=== PATIENT | female | born 1965 | race Hispanic/Latino ===

== ENCOUNTER 2017-08-21 09:17 | Emergency (ER) | payer SELFPAY ==
[2017-08-21] MEDS ORDERED: HYDROCODONE/APAP 10/325 TAB ONE (09:43)
--- NOTE | 2017-08-21 10:33 | RAD REPORT ---
EXAM DESCRIPTION: RAD - Knee Right 3 View - 08/21/2017 10:00 am CLINICAL HISTORY: Right knee pain x1 day COMPARISON: None. FINDINGS: Mild medial compartment space narrowing. No fracture, dislocation or aggressive marrow les ion. No significant intra-articular joint fluid seen.
--- NOTE | 2017-08-21 10:39 | ER ---
Nurse's Notes [facility] Name: Cleo Farris Age: 52 yrs Sex: Female : 1965 Arrival Date: 08/21/2017 Time: 09:21 Bed 20 Private MD: Out, [facility] Diagnosis: Pain in right knee Presentation: 08/21 09:25 Presenting complaint: Patient states: right knee pain, unable to walk on it x 1 day. sv Transition of care: patient was not received from another setting of care. Onset of symptoms was August 20, 2017. 09:25 Method Of Arrival: Wheelchair sv 09:25 Acuity: KYRA 4 sv 09:26 Risk Assessment: Do you want to hurt yourself or someone else? Patient reports no sv desire to harm self or others. Care prior to arrival: None. 09:45 Initial Sepsis Screen: Does the patient meet any 2 criteria? Does the patient have a sg suspected source of infection? No. Patient's initial sepsis screen is negative. Triage Assessment: 09:45 General: Appears in no apparent distress. comfortable, well groomed, well developed, sg well nourished, Behavior is calm, cooperative, appropriate for age. Injury Description: denies injury. 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 - Social history:: Smoking status: Patient/guardian denies using tobacco, Patient/guardian denies using alcohol. - Ebola Screening: : No symptoms or risks identified at this time. Screenin:45 Abuse screen: Denies threats or abuse. Denies injuries from another. Nutritional sg screening: No deficits noted. Tuberculosis screening: No symptoms or risk factors identified. Never had TB. Fall Risk None identified. Assessment: 09:45 General: Appears in no apparent distress. comfortable, well groomed, well developed, sg well nourished, Behavior is calm, cooperative, appropriate for age. Pain: Complains of pain in left arm and right knee Pain does not radiate. Quality of pain is described as aching. Neuro: No deficits noted. Cardiovascular: Heart tones S1 S2 present Capillary refill is brisk in bilateral fingers Patient's skin is warm and dry. Chest pain is denied. Cardiovascular: Denies chest pain, diaphoresis, fatigue, lightheadedness, nausea, palpitations, shortness of breath, syncope, vomiting. Respiratory: Airway is patent Respiratory effort is even, unlabored, Respiratory pattern is regular, symmetrical, Breath sounds are clear. GI: No signs and/or symptoms were reported involving the gastrointestinal system. : No signs and/or symptoms were reported regarding the genitourinary system. EENT: No deficits noted. Derm: Skin is pink, warm \T\ dry. Musculoskeletal: Circulation, motion, and sensation intact. Range of motion: intact in all extremities, Swelling absent Reports pain in left arm and right knee. 09:45 Reassessment: a black knee brace is noted to the Right Knee, pt reports applying the sg brace at home MANAGER ORDER. 09:53 Reassessment: xray at bedside. sg Vital Signs: 09:27 BP 138 / 86; Pulse 82; Resp 22; Pulse Ox 98% ; Weight 104.33 kg; Height 5 ft. 0 in. sv (152.40 cm); Pain 9/10; 10:30 BP 132 / 82; Pulse 82; Resp 18 S; Pulse Ox 98% on R/A; Pain 6/10; sg 09:27 Body Mass Index 44.92 (104.33 kg, 152.40 cm) sv ED Course: 09:21 Patient arrived in ED. sb2 09:21 Out, [facility] is Private Physician. sb2 09:26 Triage completed. sv 09:27 Arm band placed on right wrist. sv 09:29 Irving Flannery NP is PHCP. pm1 09:29 Cipriano Ghotra MD is Attending Physician. pm1 09:39 Osmar Vasquez, SARAH is Primary Nurse. sg 09:45 Patient has correct armband on for positive identification. Bed in low position. Call sg light in reach. pt requesting to stay seated in the wheelchair for comfort. 09:45 No provider procedures requiring assistance completed. Patient did not have IV access sg during this emergency room visit. 09:57 X-ray completed. Portable x-ray completed in exam room. Patient tolerated procedure jb2 well. 09:58 Knee Right 3 View XRAY In Process Unspecified. EDMS 10:38 Sumit Gordillo MD is Referral Physician. pm1 10:50 Crutch training done. Dez wrap to right knee pt to continue wearing personal knee brace.sg Administered Medications: 09:43 Drug: [place] 10 mg-325 mg 1 tabs Route: PO; sg 10:54 Follow up: Response: No adverse reaction; Pain is decreased ss Outcome: 10:39 Discharge ordered by . pm1 10:53 Patient left the ED. sg 10:53 Discharged to home ambulatory, with family. ss 10:53 Condition: good 10:53 Discharge instructions given to patient, family, Instructed on discharge instructions, follow up and referral plans. medication usage, Demonstrated understanding of instructions, follow-up care, medications, Prescriptions given X 1. Signatures: Dispatcher [employer] EDVT Gladys Gutiérrez RN RN Osmar Vasquez RN RN Luis Cortes jb2 Nadia Huffman RN RN Irving Flannery, GINO FUNDRAISING CONSULTANT pm1 Marylou Newell2
--- NOTE | 2017-08-21 10:39 | EDPHYS ---
Physician Documentation [facility] Name: Cleo Farris Age: 52 yrs Sex: Female : 1965 Arrival Date: 08/21/2017 Time: 09:21 Bed 20 Private MD: Out, [facility] ED Physician Cipriano Ghotra HPI: 08/21 10:23 This 52 yrs old Female presents to ER via Wheelchair with complaints of Right pm1 Knee Pain. 10:23 The patient presents with pain. The complaints affect the right knee. Context: resulted pm1 from History of arthritis, Currently using knee brace, Problem is a result from a previous injury: No. Onset: The symptoms/episode began/occurred 1 week(s) ago. Modifying factors: The symptoms are alleviated by OTC meds, ibuprofen and tylenol. the symptoms are aggravated by weight bearing, bending knee. Associated signs and symptoms: Pertinent negatives calf tenderness, fever, numbness, swelling, tingling. Treatment prior to arrival includes: lynda wrap, over the counter medications, NSAIDS, Tylenol, soft knee brace. Severity of symptoms: in the emergency department the symptoms are actually worse. The patient has been recently seen by a physician: the patient's primary care provider, with similar presenting complaints, was given a prescription for pain medications, but the patient's symptoms have worsened. 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 - Social history:: Smoking status: Patient/guardian denies using tobacco, Patient/guardian denies using alcohol. - Ebola Screening: : No symptoms or risks identified at this time. ROS: 10:23 Constitutional: Negative for fever, chills, and weight loss, Cardiovascular: Negative pm1 for chest pain, palpitations, and edema, Respiratory: Negative for shortness of breath, cough, wheezing, and pleuritic chest pain, Abdomen/GI: Negative for abdominal pain, nausea, vomiting, diarrhea, and constipation, Back: Negative for injury and pain. 10:23 Skin: Negative for injury, rash, and discoloration, Neuro: Negative for headache, weakness, numbness, tingling, and seizure. 10:23 MS/extremity: Positive for pain, of the right knee, Negative for decreased range of motion, deformity. Exam: 10:23 Constitutional: This is a well developed, well nourished patient who is awake, alert, pm1 and in no acute distress. Head/Face: Normocephalic, atraumatic. Chest/axilla: Normal chest wall appearance and motion. Nontender with no deformity. No lesions are appreciated. Cardiovascular: Regular rate and rhythm with a normal S1 and S2. No gallops, murmurs, or rubs. Normal PMI, no JVD. No pulse deficits. Respiratory: Lungs have equal breath sounds bilaterally, clear to auscultation and percussion. No rales, rhonchi or wheezes noted. No increased work of breathing, no retractions or nasal flaring. Back: No spinal tenderness. No costovertebral tenderness. Full range of motion. Skin: Warm, dry with normal turgor. Normal color with no rashes, no lesions, and no evidence of cellulitis. 10:23 Musculoskeletal/extremity: Extremities: grossly normal except: noted in the right knee: tenderness, Sensation intact. DVT Exam: No signs of deep vein thrombosis. 10:23 Neuro: Orientation: is normal, Motor: is normal, moves all fours. Vital Signs: 09:27 BP 138 / 86; Pulse 82; Resp 22; Pulse Ox 98% ; Weight 104.33 kg; Height 5 ft. 0 in. sv (152.40 cm); Pain 9/10; 10:30 BP 132 / 82; Pulse 82; Resp 18 S; Pulse Ox 98% on R/A; Pain 6/10; sg 09:27 Body Mass Index 44.92 (104.33 kg, 152.40 cm) sv MDM: 09:32 Patient medically screened. pm1 10:33 Data reviewed: vital signs. Data interpreted: Pulse oximetry: on room air is 98 %. pm1 Interpretation: normal. Counseling: I had a detailed discussion with the patient and/or guardian regarding: the historical points, exam findings, and any diagnostic results supporting the discharge/admit diagnosis, radiology results, the need for outpatient follow up, for definitive care, a orthopedic surgeon, to return to the emergency department if symptoms worsen or persist or if there are any questions or concerns that arise at home. 08/21 09:38 Order name: Knee Right 3 View XRAY; Complete Time: 10:42 pm1 Administered Medications: 09:43 Drug: [place] 10 mg-325 mg 1 tabs Route: PO; sg 10:54 Follow up: Response: No adverse reaction; Pain is decreased ss Disposition: 08/21/17 10:39 Discharged to Home. Impression: Pain in right knee. - Condition is Stable. - Discharge Instructions: Arthralgia, Crutch Use, Knee Pain. - Prescriptions for Tylenol- Codeine #3 300-30 mg Oral Tablet - take 2 tablets by ORAL route every 6 hours As needed; 20 tablet. - Medication Reconciliation Form, Thank You Letter, Prescription Opioid Use form. - Follow up: Emergency Department; When: As needed; Reason: Worsening of condition. Follow up: Sumit Gordillo MD; When: 2 - 3 days; Reason: Recheck today's complaints, Continuance of care, Re-evaluation by your physician. - Problem is new. - Symptoms have improved. Addendum: 08/22/2017 15:24 Co-signature as Attending Physician, Cipriano Ghotra MD I agree with the assessment and c barnes plan of care. Signatures: Dispatcher [employer] EDGladys Sarmiento RN RN Osmar Vasquez RN RN sg Anderson, Corey, MD MD cha Marinas, Patrick, ENGINEERING TEST SPECIALIST ENGINEERING TEST SPECIALIST pm1 Nadia Huffman RN Corrections: (The following items were deleted from the chart) 08/21 10:53 10:39 08/21/2017 10:39 Discharged to Home. Impression: Pain in right knee. Condition is sg Stable. Forms are Medication Reconciliation Form, Thank You Letter, Antibiotic Education, Prescription Opioid Use. Follow up: Emergency Department; When: As needed; Reason: Worsening of condition. Follow up: Dr. Sumit Gordillo; When: 2 - 3 days; Reason: Recheck today's complaints, Continuance of care, Re-evaluation by your physician. Problem is new. Symptoms have improved. pm1
== END 2017-08-21 10:53 | disposition home or self-care (01) ==
LOC: ER 09:17
DX: M25.561 Pain in right knee (principal); E11.9 Type 2 diabetes mellitus without complications; E78.00 Pure hypercholesterolemia, unspecified
CPT/HCPCS: 99284

== ENCOUNTER 2018-01-09 20:05 | Emergency (ER) | payer SELFPAY ==
[2018-01-09] MEDS ORDERED: IBUPROFEN 400 MG TAB ONE (23:20)
[2018-01-09] MEDS ORDERED: IBUPROFEN 200 MG TAB PO ONE (23:20)
[2018-01-09] MEDS ORDERED: ACETAMINOPHEN 500 MG TAB ONE (23:20)
--- NOTE | 2018-01-10 01:26 | EDPHYS ---
Physician Documentation [facility] Name: Cleo Farris Age: 52 yrs Sex: Female : 1965 Arrival Date: 01/09/2018 Time: 20:07 Bed 19 Private MD: ED Physician Johann Hdz HPI: 01/10 06:33 This 52 yrs old Female presents to ER via EMS with complaints of Fall Injury. 06:33 Details of fall: The patient fell from an upright position. Onset: The symptoms/episode wa began/occurred just prior to arrival. Associated injuries: The patient sustained painful injury, L hip, R knee. Severity of symptoms: At their worst the symptoms were moderate, in the emergency department the symptoms are unchanged. The patient has not experienced similar symptoms in the past. The patient has not recently seen a physician. 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 - Social history:: Smoking status: Patient/guardian denies using tobacco. - Ebola Screening: : No symptoms or risks identified at this time. - Family history:: not pertinent. - Hospitalizations: : No recent hospitalization is reported. ROS: 01/10 06:43 Constitutional: Negative for fever, chills, and weight loss, Eyes: Negative for injury, wa pain, redness, and discharge, ENT: Negative for injury, pain, and discharge, Neck: Negative for injury, pain, and swelling, Cardiovascular: Negative for chest pain, palpitations, and edema, Respiratory: Negative for shortness of breath, cough, wheezing, and pleuritic chest pain, Abdomen/GI: Negative for abdominal pain, nausea, vomiting, diarrhea, and constipation, Back: Negative for injury and pain, : Negative for injury, bleeding, discharge, and swelling, Skin: Negative for injury, rash, and discoloration, Neuro: Negative for headache, weakness, numbness, tingling, and seizure, Psych: Negative for depression, anxiety, suicide ideation, homicidal ideation, and hallucinations. MS/extremity: Positive for pain, tenderness, of the left hip and right knee. Exam: 06:48 Constitutional: This is a well developed, well nourished patient who is awake, alert, wa and in no acute distress. Head/Face: Normocephalic, atraumatic. Eyes: Pupils equal round and reactive to light, extra-ocular motions intact. Lids and lashes normal. Conjunctiva and sclera are non-icteric and not injected. Cornea within normal limits. Periorbital areas with no swelling, redness, or edema. ENT: Nares patent. No nasal discharge, no septal abnormalities noted. Tympanic membranes are normal and external auditory canals are clear. Oropharynx with no redness, swelling, or masses, exudates, or evidence of obstruction, uvula midline. Mucous membranes moist. Neck: Trachea midline, no thyromegaly or masses palpated, and no cervical lymphadenopathy. Supple, full range of motion without nuchal rigidity, or vertebral point tenderness. No Meningismus. Chest/axilla: Normal chest wall appearance and motion. Nontender with no deformity. No lesions are appreciated. Cardiovascular: Regular rate and rhythm with a normal S1 and S2. No gallops, murmurs, or rubs. Normal PMI, no JVD. No pulse deficits. Respiratory: Lungs have equal breath sounds bilaterally, clear to auscultation and percussion. No rales, rhonchi or wheezes noted. No increased work of breathing, no retractions or nasal flaring. Abdomen/GI: Soft, non-tender, with normal bowel sounds. No distension or tympany. No guarding or rebound. No evidence of tenderness throughout. Back: No spinal tenderness. No costovertebral tenderness. Full range of motion. Skin: Warm, dry with normal turgor. Normal color with no rashes, no lesions, and no evidence of cellulitis. Neuro: Awake and alert, GCS 15, oriented to person, place, time, and situation. Cranial nerves II-XII grossly intact. Motor strength 5/5 in all extremities. Sensory grossly intact. Cerebellar exam normal. Normal gait. Psych: Awake, alert, with orientation to person, place and time. Behavior, mood, and affect are within normal limits. 06:48 Musculoskeletal/extremity: Extremities: noted in the left hip and right leg: pain, tenderness. Vital Signs: 01/09 21:13 BP 123 / 87; Pulse 80; Resp 17; Temp 98.1; Pulse Ox 96% on R/A; Weight 90.72 kg; Height kr2 5 ft. (152.40 cm); Pain 8/10; 22:05 BP 131 / 79; Pulse 81; Resp 17 S; Pulse Ox 97% on R/A; jd3 23:36 Pulse 71; Resp 18 S; Pulse Ox 97% on R/A; jd3 01/10 01:34 BP 129 / 85; Pulse 83; Resp 16 S; Pulse Ox 97% on R/A; d3 01/09 21:13 Body Mass Index 39.06 (90.72 kg, 152.40 cm) kr2 [place] Coma Score: 01/09 21:13 Eye Response: spontaneous(4). Verbal Response: oriented(5). Motor Response: obeys kr2 commands(6). Total: 15. Trauma Score (Adult): 21:13 Eye Response: spontaneous(1); Verbal Response: oriented(1); Motor Response: obeys kr2 commands(2); Systolic BP: > 89 mm Hg(4); Respiratory Rate: 10 to 29 per min(4); [place] Score: 15; Trauma Score: 12 MDM: 22:10 Patient medically screened. ga 01/10 06:48 Differential diagnosis: contusion, fracture, sprain, strain. Data reviewed: vital wa signs, nurses notes, radiologic studies. Test interpretation: by ED physician or midlevel provider: no acute fx. Response to treatment: the patient's symptoms have markedly improved after treatment. 01/09 23:08 Order name: Knee Right 3 View XRAY ga 01/09 23:08 Order name: Hip Left 2 View XRAY ga Administered Medications: 01/09 23:20 Drug: Motrin 600 mg Route: PO; [facility] 01/10 00:20 Follow up: Response: No adverse reaction [facility] 01/09 23:20 Drug: Tylenol 1000 mg Route: PO; d3 01/10 00:20 Follow up: Response: No adverse reaction j Disposition: 01/10/18 01:25 Discharged to Home. Impression: Right Hip sprain, Right Knee sprain. - Condition is Stable. - Discharge Instructions: Hip Pain, Knee Sprain, [id number]. - Prescriptions for Ibuprofen 600 mg Oral Tablet - take 1 tablet by ORAL route every 8 hours As needed take with food; 30 tablet. - Medication Reconciliation Form, Thank You Letter, Antibiotic Education, Prescription Opioid Use, Work release form form. - Follow up: Private Physician; When: 5 - 6 days; Reason: Recheck today's complaints. - Problem is new. - Symptoms have improved. - Notes: take ibuprofen and tylenol for pain as needed. Signatures: Dispatcher [employer] EDMS Johann Hdz MD MD wa Davies, Jonathon RN RN jd3 Ines Zuniga RN RN kr2 Corrections: (The following items were deleted from the chart) 01:35 01:25 01/10/2018 01:25 Discharged to Home. Impression: Right Hip sprain; Right Knee jd3 sprain. Condition is Stable. Forms are Medication Reconciliation Form, Thank You Letter, Antibiotic Education, Prescription Opioid Use. Follow up: Private Physician; When: 5 - 6 days; Reason: Recheck today's complaints. Problem is new. Symptoms have improved. liliana
--- NOTE | 2018-01-10 01:26 | ER ---
Nurse's Notes [facility] Name: Cleo Farris Age: 52 yrs Sex: Female : 1965 Arrival Date: 01/09/2018 Time: 20:07 Bed 19 Private MD: Diagnosis: Right Hip sprain;Right Knee sprain Presentation: 01/09 21:09 Presenting complaint: EMS states: Patient was in the store and slipped and fell, is kr2 complained of left hip pain, right knee pain and right hand pain. Care prior to arrival: None. Mechanism of Injury: Fall from standing position. Trauma event details: Injury occurred in the [facility], Injury occurred: in a public building. Injury occurred: January 09, 2018. 21:09 Acuity: KYRA 4 kr2 21:09 Method Of Arrival: EMS: [facility] kr2 22:04 Transition of care: patient was not received from another setting of care. Onset of jd3 symptoms was January 09, 2018. Risk Assessment: Do you want to hurt yourself or someone else? Patient reports no desire to harm self or others. Initial Sepsis Screen: Does the patient meet any 2 criteria? No. Patient's initial sepsis screen is negative. Does the patient have a suspected source of infection? No. Patient's initial sepsis screen is negative. 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: 01/10 01:35 LMP N/A - Irregular menses jd3 Trauma Activation: Not Applicable Physician: ED Physician; Name: ; Notified At: ; Arrived At: Physician: General Surgeon; Name: ; Notified At: ; Arrived At: Physician: Radiology; Name: ; Notified At: ; Arrived At: Physician: Respiratory; Name: ; Notified At: ; Arrived At: Physician: Lab; Name: ; Notified At: ; Arrived At: Historical: - Allergies: 01/09 21:14 No Known Allergies; kr2 - Home Meds: 21:14 Glipizide Oral [Active]; Metformin Oral [Active]; Lisinopril Oral [Active]; kr2 - PMHx: 21:14 Diabetes - NIDDM; Heart Murmur; High Cholesterol; kr2 - PSHx: 21:14 Cholecystectomy; ; kr2 - Immunization history: Last tetanus immunization: - up to date. - Social history:: Smoking status: Patient/guardian denies using tobacco. - Ebola Screening: : No symptoms or risks identified at this time. - Family history:: not pertinent. - Hospitalizations: : No recent hospitalization is reported. Screenin:04 Abuse screen: Denies threats or abuse. Nutritional screening: No deficits noted. jd3 Tuberculosis screening: No symptoms or risk factors identified. Fall Risk Fall in past 12 months (25 points). Ambulatory Aid- None/Bed Rest/Nurse Assist (0 pts). Gait- Weak (10 pts.). Mental Status- Oriented to own ability (0 pts). Total Kong Fall Scale indicates Low Risk Score (25-44 pts). Fall prevention measures have been instituted. Side Rails Up X 2 Placed close to Nursing Station Frequent Obs/Assesments occuring Family Present and informed to notify staff if they need to leave bedside. Primary Survey: 21:12 A: Airway: patent. Breathing/Chest: Respiratory pattern: regular, Respiratory effort: kr2 spontaneous, unlabored. Circulation: Heart tones present. Disability Alert. Assessment: 21:11 General: Appears in no apparent distress. Behavior is calm, cooperative. Pain: kr2 Complains of pain in right hand, right knee, left hip Pain does not radiate. Pain currently is 8 out of 10 on a pain scale. Quality of pain is described as burning, aching, tender, Is continuous, Alleviated by rest, Aggravated by weight bearing. Neuro: Level of Consciousness is awake, alert, obeys commands, Oriented to person, place, time, situation, Appropriate for age. 22:03 General: Appears in no apparent distress. Behavior is calm, cooperative, appropriate jd3 for age. Pain: Complains of pain in left hip, right hand and right knee. Neuro: Level of Consciousness is awake, alert, obeys commands, Oriented to person, place, time, situation, Appropriate for age. Cardiovascular: Capillary refill < 3 seconds Patient's skin is warm and dry. Respiratory: Airway is patent Respiratory effort is even, unlabored, Respiratory pattern is regular, symmetrical. GI: No signs and/or symptoms were reported involving the gastrointestinal system. : No signs and/or symptoms were reported regarding the genitourinary system. EENT: No signs and/or symptoms were reported regarding the EENT system. Derm: Skin is intact, Skin is dry, Skin is normal, Skin temperature is warm. Musculoskeletal: Circulation, motion, and sensation intact. Range of motion: limited in right knee. 23:37 Reassessment: Patient appears in no apparent distress at this time. No changes from jd3 previously documented assessment. Patient and/or family updated on plan of care and expected duration. Pain level reassessed. Patient is alert, oriented x 3, equal unlabored respirations, skin warm/dry/pink. 01/10 00:27 Reassessment: Patient appears in no apparent distress at this time. Patient and/or jd3 family updated on plan of care and expected duration. Pain level reassessed. Patient is alert, oriented x 3, equal unlabored respirations, skin warm/dry/pink. 01:33 Reassessment: Patient appears in no apparent distress at this time. No changes from jd3 previously documented assessment. Patient and/or family updated on plan of care and expected duration. Pain level reassessed. Patient is alert, oriented x 3, equal unlabored respirations, skin warm/dry/pink. reported understanding of discharge instructions. Vital Signs: 01/09 21:13 BP 123 / 87; Pulse 80; Resp 17; Temp 98.1; Pulse Ox 96% on R/A; Weight 90.72 kg; Height kr2 5 ft. (152.40 cm); Pain 8/10; 22:05 BP 131 / 79; Pulse 81; Resp 17 S; Pulse Ox 97% on R/A; jd3 23:36 Pulse 71; Resp 18 S; Pulse Ox 97% on R/A; jd3 01/10 01:34 BP 129 / 85; Pulse 83; Resp 16 S; Pulse Ox 97% on R/A; d3 01/09 21:13 Body Mass Index 39.06 (90.72 kg, 152.40 cm) kr2 Lesli Coma Score: 01/09 21:13 Eye Response: spontaneous(4). Verbal Response: oriented(5). Motor Response: obeys kr2 commands(6). Total: 15. Trauma Score (Adult): 21:13 Eye Response: spontaneous(1); Verbal Response: oriented(1); Motor Response: obeys kr2 commands(2); Systolic BP: > 89 mm Hg(4); Respiratory Rate: 10 to 29 per min(4); Lesli Score: 15; Trauma Score: 12 ED Course: 20:07 Patient arrived in ED. am2 21:11 Triage completed. kr2 22:02 Eris Rojas, RN is Primary Nurse. jd3 22:05 Patient has correct armband on for positive identification. Bed in low position. Call j light in reach. Side rails up X 1. Adult w/ patient. 22:05 Arm band placed on. jd3 22:10 Johann Hdz MD is Attending Physician. wy 23:52 X-ray completed. Portable x-ray completed in exam room. Patient tolerated procedure kw well. 23:53 Knee Right 3 View XRAY In Process Unspecified. EDMS 23:53 Hip Left 2 View XRAY In Process Unspecified. EDMS 01/10 01:34 No provider procedures requiring assistance completed. Patient did not have IV access jd3 during this emergency room visit. Administered Medications: 01/09 23:20 Drug: Motrin 600 mg Route: PO; jd3 01/10 00:20 Follow up: Response: No adverse reaction jd3 01/09 23:20 Drug: Tylenol 1000 mg Route: PO; jd3 01/10 00:20 Follow up: Response: No adverse reaction jd3 Outcome: 01:25 Discharge ordered by . wa 01:35 Discharged to home ambulatory, with family. jd3 01:35 Condition: stable 01:35 Discharge instructions given to patient, family, Instructed on discharge instructions, follow up and referral plans. medication usage, Demonstrated understanding of instructions, follow-up care, medications, Prescriptions given X 1. 01:35 Patient left the ED. jd3 Signatures: Dispatcher [employer] EDWY Yumiko Nash Amanda am2 Johann Hdz MD MD wa Davies, Jonathon, RN RN jInes Logan RN RN kr2
--- NOTE | 2018-01-10 09:14 | RAD REPORT ---
EXAM DESCRIPTION: RAD - Hip Left 2 View - 01/09/2018 11:52 pm CLINICAL HISTORY: PAIN COMPARISON: No comparisons FINDINGS: No fracture or dislocation is seen. No aggressive marrow pattern.
--- NOTE | 2018-01-10 09:15 | RAD REPORT ---
EXAM DESCRIPTION: RAD - Knee Right 3 View - 01/09/2018 11:52 pm CLINICAL HISTORY: fall Pain COMPARISON: Knee Right 3 View dated 08/21/2017 FINDINGS: No fracture or dislocation is seen. Mild narrowing of the medial joint compartment space.
== END 2018-01-10 01:35 | disposition home or self-care (01) ==
LOC: ER 20:05
DX: S73.102A Unspecified sprain of left hip, initial encounter (principal); S83.91XA Sprain of unspecified site of right knee, initial encounter; W19.XXXA Unspecified fall, initial encounter; Y93.9 Activity, unspecified; Y92.9 Unspecified place or not applicable; E11.9 Type 2 diabetes mellitus without complications; E78.00 Pure hypercholesterolemia, unspecified
CPT/HCPCS: 99284

== ENCOUNTER 2020-06-21 19:55 | Emergency (ER) | payer OTHER, SELFPAY ==
[2020-06-21 21:39] LABS: Absolute Lymphocytes (CBC) 3.3 K/uL (0.7-4.9); Basophils % 0.8 % (0-1.3); Hematocrit 36.3 % (36.0-45.0); MPV 8.1 fL (7.6-11.3); RBC Red Blood Cell Count 4.11 M/uL (3.86-4.86)
[2020-06-21 21:40] LABS: Protime INR 0.89
[2020-06-21 21:41] LABS: ALT/SGPT 36 U/L (12-78); AST/SGOT 21 U/L (15-37); Albumin 3.2 g/dL (3.4-5.0); Alkaline Phosphatase 79 U/L (45-117); BUN Blood Urea Nitrogen 15 mg/dL (7-18); Bicarbonate 30 mmol/L (21-32); Bilirubin Direct < 0.1 mg/dL (0-0.2); Bilirubin Total 0.1 mg/dL (0.2-1.0); Glucose Level 176 mg/dL (74-106); Magnesium 2.2 mg/dL (1.8-2.4); NT PRO-BNP 12 pg/mL (<125); Potassium 4.2 mmol/L (3.5-5.1); Protein, Total 7.7 g/dL (6.4-8.2); Sodium Level 137 mmol/L (136-145); Troponin (Emerg Dept Use Only) < 0.02 ng/mL (0.0-0.045)
[2020-06-21] MEDS ORDERED: NA CHLORIDE 0.9% 1,000 ML ONE (22:07)
--- NOTE | 2020-06-22 00:22 | EDPHYS ---
Physician Documentation [facility] Name: Cleo Farris Age: 54 yrs Sex: Female : 1965 Arrival Date: 06/21/2020 Time: 19:55 Bed 8 Private MD: ED Physician David Coreas HPI: 06/21 23:18 This 54 yrs old Female presents to ER via Ambulatory with complaints of cough. ma2 23:18 Onset: gradually, 2 day(s) ago. Associated signs and symptoms: Pertinent positives: ma2 cough, Pertinent negatives: headache, lightheadedness, syncope, vomiting. Severity of pain: At its worst the pain was very mild in the emergency department the pain has improved. The patient has not experienced similar symptoms in the past. had covid shot 3 days ago and here with cough and sore throat and body aches since then, she does have chest wall aches everytime she cough, no chest pain no fever. . 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 - Social history:: Smoking status: Patient denies any tobacco usage or history of. - Family history:: not pertinent. ROS: 23:18 Constitutional: Negative for fever, chills, and weight loss. ma2 23:18 All other systems are negative. Exam: 23:18 Constitutional: This is a well developed, well nourished patient who is awake, alert, ma2 and in no acute distress. Head/Face: Normocephalic, atraumatic. Eyes: Pupils equal round and reactive to light, extra-ocular motions intact. Lids and lashes normal. Conjunctiva and sclera are non-icteric and not injected. Cornea within normal limits. Periorbital areas with no swelling, redness, or edema. ENT: Nares patent. No nasal discharge, no septal abnormalities noted. Tympanic membranes are normal and external auditory canals are clear. Oropharynx with no redness, swelling, or masses, exudates, or evidence of obstruction, uvula midline. Mucous membranes moist. Neck: Trachea midline, no thyromegaly or masses palpated, and no cervical lymphadenopathy. Supple, full range of motion without nuchal rigidity, or vertebral point tenderness. No Meningismus. Chest/axilla: Normal chest wall appearance and motion. Nontender with no deformity. No lesions are appreciated. Cardiovascular: Regular rate and rhythm with a normal S1 and S2. No gallops, murmurs, or rubs. Normal PMI, no JVD. No pulse deficits. Respiratory: Lungs have equal breath sounds bilaterally, clear to auscultation and percussion. No rales, rhonchi or wheezes noted. No increased work of breathing, no retractions or nasal flaring. Abdomen/GI: Soft, non-tender, with normal bowel sounds. No distension or tympany. No guarding or rebound. No evidence of tenderness throughout. Back: No spinal tenderness. No costovertebral tenderness. Full range of motion. Skin: Warm, dry with normal turgor. Normal color with no rashes, no lesions, and no evidence of cellulitis. MS/ Extremity: Pulses equal, no cyanosis. Neurovascular intact. Full, normal range of motion. Neuro: Awake and alert, GCS 15, oriented to person, place, time, and situation. Cranial nerves II-XII grossly intact. Motor strength 5/5 in all extremities. Sensory grossly intact. Cerebellar exam normal. Normal gait. 23:21 Chest/axilla: Normal chest wall appearance and motion. chest wall pain is ma2 reproducible on exam, with no deformity. No lesions are appreciated. Vital Signs: 20:14 BP 126 / 78; Pulse 71; Resp 16 S; Temp 97.1; Pulse Ox 98% on R/A; Weight 81.65 kg (R); ca1 Height 5 ft. 0 in. (152.40 cm) (R); Pain 8/10; 22:26 BP 112 / 60; Pulse 77; Resp 18; Pulse Ox 97% on R/A; mg2 23:49 BP 110 / 60; Pulse 83; Resp 18; Pulse Ox 100% on R/A; mg2 13 00:34 BP 112 / 90; Pulse 80; Resp 18; Temp 98; Pulse Ox 100% on R/A; mg2 06/21 20:14 Body Mass Index 35.15 (81.65 kg, 152.40 cm) ca1 MDM: 06/21 20:51 Patient medically screened. ma2 23:18 Differential diagnosis: anxiety, chest wall pain, gastritis, pericarditis, pleurisy. ma2 HEART Score: History: Slightly Suspicious (0). 23:21 HEART Score: History: ECG: Normal (0), Age: < or = 45 years (0), Risk Factors: No Risk ma2 Factors Known (0), Troponin: < or = 1 x Normal Limit (0), Total Score = 0. Data reviewed: vital signs, nurses notes, EMS record, skilled nursing records. Counseling: I had a detailed discussion with the patient and/or guardian regarding: the historical points, exam findings, and any diagnostic results supporting the discharge/admit diagnosis, the presence of at least one elevated blood pressure reading (>120/80) during this emergency department visit. 23:23 The patient was not given aspirin in the Emergency Department. Aspirin not given, ma2 patient refused. ED course: patient declined any pain rx in er. . 06/21 20:53 Order name: Basic Metabolic Panel; Complete Time: 22:58 [facility] 06/21 20:53 Order name: CBC with Diff; Complete Time: 22:58 [facility] 06/21 20:53 Order name: LFT's; Complete Time: 22:58 [facility] 06/21 20:53 Order name: Magnesium; Complete Time: 22:58 [facility] 06/21 20:53 Order name: NT PRO-BNP; Complete Time: 22:58 [facility] 06/21 20:53 Order name: PT-INR; Complete Time: 22:58 [facility] 06/21 20:23 Order name: EKG; Complete Time: 20:23 ca1 06/21 20:23 Order name: EKG - Nurse/Tech; Complete Time: 20:24 ca1 06/21 20:53 Order name: Troponin (emerg Dept Use Only); Complete Time: 22:58 [facility] 06/21 20:53 Order name: XRAY Chest (1 view) [facility] 06/21 20:53 Order name: Cardiac monitoring; Complete Time: 21:21 [facility] 06/21 20:53 Order name: IV Saline Lock; Complete Time: 21:21 [facility] 06/21 23:18 Order name: Troponin (emerg Dept Use Only); Complete Time: 00:2 06/21 20:53 Order name: Labs collected and sent; Complete Time: in2 06/21 20:53 Order name: O2 Per Protocol; Complete Time: in2 06/21 20:53 Order name: O2 Sat Monitoring; Complete Time: : Administered Medications: 21:51 Drug: NS 0.9% 1000 ml Route: IV; Rate: 1 bolus; Site: right antecubital; mg2 06/22 00:35 Follow up: Response: No adverse reaction; IV Status: Completed infusion; IV Intake: mg2 1000ml Disposition: 06/22/20 00:21 Discharged to Home. Impression: Cough. - Condition is Stable. - Discharge Instructions: Cough, Adult, [id number]. - Prescriptions for Diclofenac Sodium 75 mg Oral Tablet Sustained Release - take 1 tablet by ORAL route 2 times per day; 30 tablet. - Medication Reconciliation Form, Thank You Letter, Antibiotic Education, Prescription Opioid Use form. - Follow up: Private Physician; When: Tomorrow; Reason: If symptoms return, Continuance of care. Signatures: Dispatcher [employer] EDMS David Coreas MD MD in2 Harvey Chester RN RN [facility] Polly Julian RN RN [facility] Corrections: (The following items were deleted from the chart) 00:35 00:21 06/22/2020 00:21 Discharged to Home. Impression: Cough. Condition is Stable. mg2 Prescriptions for Diclofenac Sodium 75 mg Oral Tablet Sustained Release - take 1 tablet by ORAL route 2 times per day; 30 tablet. and Forms are Medication Reconciliation Form, Thank You Letter, Antibiotic Education, Prescription Opioid Use. Follow up: Private Physician; When: Tomorrow; Reason: If symptoms return, Continuance of care. ma2
--- NOTE | 2020-06-22 00:22 | ER ---
Nurse's Notes [facility] Name: Cleo Farris Age: 54 yrs Sex: Female : 1965 Arrival Date: 06/21/2020 Time: 19:55 Bed 8 Private MD: Diagnosis: Cough Presentation: 06/21 20:14 Chief complaint: Patient states: Had the 1st covid shot 06/18/2020 on the L arm. Symptoms ca1 started the day after. Symptoms are soreness on the arm that now has gone to my neck, my head, chest pains, feels like I have difficulty swallowing, I have sore throat and L ear pain, and I can't hear on my L ear. I also feel very weak and I don't have any strength. Coronavirus screen: Client denies travel out of the [place] in the last 14 days. headache, sore throat, Client presents with at least one sign or symptom that may indicate coronavirus-19. Standard/surgical mask placed on the client. Provider contacted for isolation considerations. Ebola Screen: Patient negative for fever greater than or equal to 101.5 degrees Fahrenheit, and additional compatible Ebola Virus Disease symptoms Patient denies exposure to infectious person. Patient denies travel to an Ebola-affected area in the 21 days before illness onset. No symptoms or risks identified at this time. Initial Sepsis Screen: Does the patient meet any 2 criteria? No. Patient's initial sepsis screen is negative. Does the patient have a suspected source of infection? No. Patient's initial sepsis screen is negative. Risk Assessment: Do you want to hurt yourself or someone else? Patient reports no desire to harm self or others. Note supplier relationship director #[id number]. Onset of symptoms was June 19, 2020. 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 - Social history:: Smoking status: Patient denies any tobacco usage or history of. - Family history:: not pertinent. Screenin:22 Abuse screen: Denies threats or abuse. Denies injuries from another. Nutritional mg2 screening: No deficits noted. Tuberculosis screening: No symptoms or risk factors identified. Fall Risk IV access (20 points). Assessment: 21:21 General: Appears in no apparent distress. comfortable, Behavior is calm, cooperative. mg2 Pain: Complains of pain in chest Pain does not radiate. Pain currently is 3 out of 10 on a pain scale. Quality of pain is described as aching, Pain began gradually, 1 day ago. Is intermittent. Neuro: Level of Consciousness is awake, alert, obeys commands, Oriented to person, place, time, situation. Cardiovascular: Reports chest pain, Capillary refill < 3 seconds Patient's skin is warm and dry. Respiratory: Airway is patent Respiratory effort is even, unlabored, Respiratory pattern is regular, symmetrical. GI: No signs and/or symptoms were reported involving the gastrointestinal system. : No signs and/or symptoms were reported regarding the genitourinary system. EENT: No signs and/or symptoms were reported regarding the EENT system. Derm: Skin is intact, is healthy with good turgor, Skin is pink, warm \T\ dry. normal. Musculoskeletal: Circulation, motion, and sensation intact. Capillary refill < 3 seconds. 22:27 Reassessment: Patient appears in no apparent distress at this time. Patient and/or mg2 family updated on plan of care and expected duration. Pain level reassessed. Patient is alert, oriented x 3, equal unlabored respirations, skin warm/dry/pink. Vital Signs: 20:14 BP 126 / 78; Pulse 71; Resp 16 S; Temp 97.1; Pulse Ox 98% on R/A; Weight 81.65 kg (R); ca1 Height 5 ft. 0 in. (152.40 cm) (R); Pain 8/10; 22:26 BP 112 / 60; Pulse 77; Resp 18; Pulse Ox 97% on R/A; mg2 23:49 BP 110 / 60; Pulse 83; Resp 18; Pulse Ox 100% on R/A; mg2 06/22 00:34 BP 112 / 90; Pulse 80; Resp 18; Temp 98; Pulse Ox 100% on R/A; mg2 06/21 20:14 Body Mass Index 35.15 (81.65 kg, 152.40 cm) ca1 ED Course: 06/21 19:55 Patient arrived in ED. ag3 20:21 Triage completed. ca1 20:22 Arm band placed on right wrist. ca1 20:51 David Coreas MD is Attending Physician. ma2 21:00 Inserted saline lock: 20 gauge in right antecubital area, using aseptic technique. mg2 Blood collected. 21:06 XRAY Chest (1 view) In Process Unspecified. EDMS 21:20 Harvey Chester, RN is Primary Nurse. mg2 21:22 Patient has correct armband on for positive identification. teletypesetter monitor on. Pulse mg2 ox on. NIBP on. Door closed. Warm blanket given. 21:22 No provider procedures requiring assistance completed. Patient maintains SpO2 mg2 saturation greater than 95% on room air. 06/22 00:34 IV discontinued, intact, bleeding controlled, No redness/swelling at site. Pressure mg2 dressing applied. Administered Medications: 06/21 21:51 Drug: NS 0.9% 1000 ml Route: IV; Rate: 1 bolus; Site: right antecubital; mg2 06/22 00:35 Follow up: Response: No adverse reaction; IV Status: Completed infusion; IV Intake: mg2 1000ml Intake: 00:35 IV: 1000ml; Total: 1000ml. mg2 Outcome: 00:21 Discharge ordered by . ma2 00:34 Discharged to home ambulatory. mg2 00:34 Condition: stable 00:34 Discharge instructions given to patient, Instructed on discharge instructions, follow up and referral plans. medication usage, Demonstrated understanding of instructions, follow-up care, medications, Prescriptions given X 1. 00:35 Patient left the ED. mg2 Signatures: Dispatcher [employer] EDMS David Coreas MD MD ma2 Harvey Chester, SARAH RN mg2 Terri Miner 3 Polly Julian RN RN ca1
[2020-06-22 00:42] VITALS: O2SAT 100
[2020-06-22 00:44] VITALS: BP 112/90; TEMP 98
--- NOTE | 2020-06-22 08:57 | RAD REPORT ---
EXAM DESCRIPTION: RAD - Chest Single View - 06/21/2020 9:09 pm CLINICAL HISTORY: CHEST PAIN Chest pain. COMPARISON: Chest Single View dated 04/08/2017; CHEST PA AND LAT 2 VIEW dated 08/18/2014; CHEST PA AND LAT 2 VIEW dated 06/28/2014; CHEST SINGLE VIEW dated 06/12/2013 FINDINGS: Portable technique limits examination quality. The lungs are grossly clear. The heart is normal in size. No displaced fractures. IMPRESSION: No acute intrathoracic process suspected.
--- NOTE | 2020-06-22 16:35 | EKG ---
Test Date: 2020-06-21 Test Time: 20:26:28 Campaign Fundraiser: DAVIDE MEASUREMENT RESULTS: Intervals: Rate: 90 DC: 154 QRSD: 86 QT: 368 QTc: 450 Glade: P: 57 DC: 154 QRS: -87 T: 10 INTERPRETIVE STATEMENTS: Normal sinus rhythm Low voltage QRS Left anterior fascicular block Septal infarct, age undetermined Possible Lateral infarct, age undetermined Abnormal ECG Compared to ECG 04/08/2017 17:37:29 Low QRS voltage now present Left anterior fascicular block now present Myocardial infarct finding now present Electronically Signed On 06-22-20 16:33:03 CDT by Doug Eddy
== END 2020-06-22 00:35 | disposition home or self-care (01) ==
LOC: ER 19:55
DX: R05 Cough (principal); E11.9 Type 2 diabetes mellitus without complications; E78.00 Pure hypercholesterolemia, unspecified; I10 Essential (primary) hypertension
CPT/HCPCS: 36415; 71045; 80048; 80076; 83735; 83880; 84484; 85025; 85610; 93005; 96360; 96361; 99285; J7030

== ENCOUNTER 2021-09-23 15:11 | Emergency (ER) | payer MEDICARE ==
[2021-09-23] MEDS ORDERED: METOCLOPRAMIDE 10 MG/2mL INJ ONE (16:24)
[2021-09-23] MEDS ORDERED: KETOROLAC 30 MG/ML INJ ONE (16:24)
[2021-09-23] MEDS ORDERED: NA CHLORIDE 0.9% 1,000 ML ONE (16:24)
[2021-09-23] MEDS ORDERED: DIPHENHYDRAMINE 50 MG/ML VIAL ONE (16:24)
--- NOTE | 2021-09-23 17:32 | EDPHYS ---
Physician Documentation [facility] Name: Cleo Farris Age: 56 yrs Sex: Female : 1965 Arrival Date: 09/23/2021 Time: 15:29 Bed 6 Private MD: ED Physician Cipriano Ghotra HPI: 09/23 20:14 This 56 yrs old Female presents to ER via EMS with complaints of Headache - pm1 body aches, cough. 20:14 The patient or guardian reports cough, with no sputum, flu symptoms. Onset: The pm1 symptoms/episode began/occurred yesterday. Severity of symptoms: in the emergency department the symptoms are unchanged. Modifying factors: The symptoms are alleviated by nothing, the symptoms are aggravated by nothing. Associated signs and symptoms: Pertinent positives: diarrhea, fever, Abdominal pain, Pertinent negatives: chest pain, nausea, sore throat, vomiting, Shortness of breath. The patient has not experienced similar symptoms in the past. The patient has not recently seen a physician. Historical: - Allergies: 15:45 No Known Allergies; jg9 - Home Meds: 15:45 Glipizide Oral [Active]; lisinopril Oral [Active]; Metformin Oral [Active]; jg9 - PMHx: 15:45 Diabetes - NIDDM; Heart Murmur; High Cholesterol; Hypertension; jg9 - Immunization history:: Adult Immunizations Client reports receiving the 2nd dose of the Covid vaccine, Pneumococcal vaccine is not up to date, Flu vaccine is up to date. - Social history:: Smoking status: Patient denies any tobacco usage or history of. ROS: 20:14 Constitutional: Negative for fever, chills, and weight loss, Cardiovascular: Negative pm1 for chest pain, palpitations, and edema. 20:14 MS/Extremity: Negative for injury and deformity, Skin: Negative for injury, rash, and discoloration. 20:14 Respiratory: Positive for cough, Negative for shortness of breath. 20:14 Abdomen/GI: Positive for abdominal pain, diarrhea, Negative for nausea and vomiting. 20:14 Neuro: Positive for headache. 20:14 All other systems are negative. Exam: 20:14 Constitutional: This is a well developed, well nourished patient who is awake, alert, pm1 and in no acute distress. Head/Face: Normocephalic, atraumatic. 20:14 Back: No spinal tenderness. No costovertebral tenderness. Full range of motion. Skin: Warm, dry with normal turgor. Normal color with no rashes, no lesions, and no evidence of cellulitis. MS/ Extremity: Pulses equal, no cyanosis. Neurovascular intact. Full, normal range of motion. 20:14 ENT: Exam is negative for acute changes, External ear(s): are unremarkable, Ear canal(s): are normal, TM's: are normal. 20:14 Cardiovascular: Exam negative for acute changes, Rate: normal, Rhythm: regular, Pulses: no pulse deficits are appreciated, Heart sounds: normal. 20:14 Respiratory: Exam negative for acute changes, respiratory distress, shortness of breath, Breath sounds: are clear throughout. 20:14 Abdomen/GI: Inspection: abdomen appears normal, Palpation: abdomen is soft and non-tender, in all quadrants. 20:14 Neuro: Exam negative for acute changes, Orientation: is normal, Mentation: is normal, Motor: is normal, moves all fours. Vital Signs: 15:30 BP 149 / 70; Pulse 106; Resp 18 S; Temp 100.1(O); Pulse Ox 97% on R/A; Weight 86.18 kg 9 (R); Height 5 ft. 9 in. (175.26 cm) (R); Pain 9/10; 16:30 BP 118 / 97; Pulse 101; Resp 20 S; Pulse Ox 98% ; Pain 9/10; jg9 17:30 BP 110 / 68; Pulse 93; Resp 14 S; Pulse Ox 96% on R/A; jg9 18:00 BP 114 / 64; Pulse 89; Resp 14 S; Pulse Ox 96% ; jg9 15:30 Body Mass Index 28.06 (86.18 kg, 175.26 cm) jg9 MDM: 15:40 Patient medically screened. [facility] 17:31 Data reviewed: vital signs. Data interpreted: Pulse oximetry: on room air is 98 %. pm1 Interpretation: normal. Counseling: I had a detailed discussion with the patient and/or guardian regarding: the historical points, exam findings, and any diagnostic results supporting the discharge/admit diagnosis, lab results, the need for outpatient follow up, to return to the emergency department if symptoms worsen or persist or if there are any questions or concerns that arise at home. 09/23 15:50 Order name: COVID-19 SARS RT PCR (Document "Date of Onset" if Symptomatic); Complete pm1 Time: 17:29 09/23 15:50 Order name: Flu; Complete Time: 17:29 pm1 09/23 15:50 Order name: Strep; Complete Time: 16:55 pm1 09/23 16:47 Order name: Throat Culture EDMS Administered Medications: 16:20 Not Given (Other Intervention Used): Benadryl (diphenhydrAMINE) 12.5 mg IVP once jg9 16:20 Not Given (Other Intervention Used): Ketorolac 15 mg IVP once jg9 16:30 Drug: Reglan (metoCLOPramide) 10 mg Route: IVP; Site: left antecubital; jg9 18:00 Follow up: Response: No adverse reaction; Marked relief of symptoms jg9 16:30 Drug: NS 0.9% 1000 ml Route: IV; Rate: 1000 ml; Site: left antecubital; jg9 18:30 Follow up: IV Status: Completed infusion; IV Intake: 1000ml jg9 16:36 Drug: Benadryl (diphenhydrAMINE) 25 mg Route: IVP; Site: left antecubital; jg9 18:00 Follow up: Response: No adverse reaction; Marked relief of symptoms jg9 16:37 Drug: Ketorolac 30 mg Route: IVP; Site: left antecubital; jg9 18:00 Follow up: Response: No adverse reaction; Marked relief of symptoms jg9 Disposition Summary: 09/23/21 17:31 Discharge Ordered Location: Home pm1 Problem: new pm1 Symptoms: have improved pm1 Condition: Stable pm1 Diagnosis - Coronavirus infection, unspecified pm1 Followup: pm1 - With: Emergency Department - When: As needed - Reason: Worsening of condition Followup: pm1 - With: Private Physician - When: 2 - 3 days - Reason: Recheck today's complaints, Continuance of care, Re-evaluation by your physician Discharge Instructions: - Discharge Summary Sheet pm1 - COVID-19 pm1 - COVID-19 Frequently Asked Questions pm1 - 10 Things You Can Do to Manage Your COVID-19 Symptoms at Home - [facility] pm1 - COVID-19: Quarantine vs. Isolation - [facility] pm1 Forms: - Medication Reconciliation Form pm1 - Thank You Letter pm1 - Antibiotic Education pm1 - Prescription Opioid Use pm1 Prescriptions: - Guaifenesin AC 10-100 mg/5 mL Oral Liquid - take 10 milliliters by ORAL route every 4 hours As needed; 240 milliliter; pm1 Refills: 0, Product Selection Permitted Addendum: 09/25/2021 13:51 Co-signature as Attending Physician, Cipriano Ghotra MD I agree with the assessment and c barnes plan of care. Signatures: Dispatcher [employer] EDWI Cipriano Ghotra MD MD cha Marinas, Patrick, WARDROBE SUPERVISOR WARDROBE SUPERVISOR pm1 Margarita Munguia RN RN jg9
--- NOTE | 2021-09-23 17:32 | ER ---
Nurse's Notes [facility] Name: Cleo Farris Age: 56 yrs Sex: Female : 1965 Arrival Date: 09/23/2021 Time: 15:29 Bed 6 Private MD: Diagnosis: Coronavirus infection, unspecified Presentation: 09/23 15:30 Chief complaint: EMS states: patient called EMS with complaints of headache, fever, jg9 neck pain, abdominal pain. Multiple family members in the home have been sick with similar symptoms. Coronavirus screen: Vaccine status: Patient reports receiving the 2nd dose of the covid vaccine. Ebola Screen: Patient negative for fever greater than or equal to 101.5 degrees Fahrenheit, and additional compatible Ebola Virus Disease symptoms Patient denies exposure to infectious person. Patient denies travel to an Ebola-affected area in the 21 days before illness onset. Initial Sepsis Screen: Does the patient meet any 2 criteria? HR > 90 bpm. No. Patient's initial sepsis screen is negative. Does the patient have a suspected source of infection? No. Patient's initial sepsis screen is negative. Risk Assessment: Do you want to hurt yourself or someone else? Patient reports no desire to harm self or others. Onset of symptoms is unknown. 15:30 Method Of Arrival: EMS: [facility] jg9 15:30 Acuity: KYRA 3 jg9 Triage Assessment: 15:30 Headache History: Denies prior headaches. General: Appears distressed, uncomfortable, jg9 Behavior is anxious. Pain: Complains of pain in right islam, neck, abdomen and posterior chest Pain currently is 9 out of 10 on a pain scale. Pain began 2-3 days ago. Also complains of decreased appetite, nausea, sleeplessness, Current management is with Tylenol. Neuro: Reports headache in right in entire. Historical: - Allergies: 15:45 No Known Allergies; jg9 - Home Meds: 15:45 Glipizide Oral [Active]; lisinopril Oral [Active]; Metformin Oral [Active]; jg9 - PMHx: 15:45 Diabetes - NIDDM; Heart Murmur; High Cholesterol; Hypertension; jg9 - Immunization history:: Adult Immunizations Client reports receiving the 2nd dose of the Covid vaccine, Pneumococcal vaccine is not up to date, Flu vaccine is up to date. - Social history:: Smoking status: Patient denies any tobacco usage or history of. Screenin:30 Abuse screen: Denies threats or abuse. Denies injuries from another. Nutritional jg9 screening: No deficits noted. Tuberculosis screening: No symptoms or risk factors identified. Fall Risk Fall in past 12 months (25 points). Assessment: 16:37 Reassessment: No changes from previously documented assessment. Patient and/or family jg9 updated on plan of care and expected duration. Pain level reassessed. Patient is alert, oriented x 3, equal unlabored respirations, skin warm/dry/pink. Pain: Complains of pain in posterior chest and abdomen and right sternocleidomastoid and right islam and top of head and neck and head. 17:45 Reassessment: Patient and/or family updated on plan of care and expected duration. Pain jg9 level reassessed. Patient is alert, oriented x 3, equal unlabored respirations, skin warm/dry/pink. Patient states feeling better. Patient states symptoms have improved. Vital Signs: 15:30 BP 149 / 70; Pulse 106; Resp 18 S; Temp 100.1(O); Pulse Ox 97% on R/A; Weight 86.18 kg jg9 (R); Height 5 ft. 9 in. (175.26 cm) (R); Pain 9/10; 16:30 BP 118 / 97; Pulse 101; Resp 20 S; Pulse Ox 98% ; Pain 9/10; jg9 17:30 BP 110 / 68; Pulse 93; Resp 14 S; Pulse Ox 96% on R/A; jg9 18:00 BP 114 / 64; Pulse 89; Resp 14 S; Pulse Ox 96% ; jg9 15:30 Body Mass Index 28.06 (86.18 kg, 175.26 cm) jg9 ED Course: 15:29 Patient arrived in ED. eb 15:32 Margarita Munguia, SARAH is Primary Nurse. jg9 15:39 Irving Flannery NP is PHCP. pm1 15:40 Cipriano Ghotra MD is Attending Physician. pm1 15:45 Arm band placed on right wrist. jg9 15:50 Inserted saline lock: 20 gauge in left antecubital area, using aseptic technique. jg9 15:57 Triage completed. jg9 16:01 Patient has correct armband on for positive identification. Bed in low position. Call jg9 light in reach. Side rails up X 1. 18:41 No provider procedures requiring assistance completed. jg9 18:41 IV discontinued. jg9 Administered Medications: 16:20 Not Given (Other Intervention Used): Benadryl (diphenhydrAMINE) 12.5 mg IVP once jg9 16:20 Not Given (Other Intervention Used): Ketorolac 15 mg IVP once jg9 16:30 Drug: Reglan (metoCLOPramide) 10 mg Route: IVP; Site: left antecubital; jg9 18:00 Follow up: Response: No adverse reaction; Marked relief of symptoms jg9 16:30 Drug: NS 0.9% 1000 ml Route: IV; Rate: 1000 ml; Site: left antecubital; jg9 18:30 Follow up: IV Status: Completed infusion; IV Intake: 1000ml jg9 16:36 Drug: Benadryl (diphenhydrAMINE) 25 mg Route: IVP; Site: left antecubital; jg9 18:00 Follow up: Response: No adverse reaction; Marked relief of symptoms jg9 16:37 Drug: Ketorolac 30 mg Route: IVP; Site: left antecubital; jg9 18:00 Follow up: Response: No adverse reaction; Marked relief of symptoms jg9 Medication: 18:41 VIS not applicable for this client. jg9 Intake: 18:30 IV: 1000ml; Total: 1000ml. jg9 Outcome: 17:31 Discharge ordered by . pm1 18:30 Discharged to home via wheelchair. jg9 18:30 Condition: stable 18:30 Discharge instructions given to patient, Instructed on discharge instructions, follow up and referral plans. Demonstrated understanding of instructions, follow-up care, Prescriptions given X 1. 18:35 Patient left the ED. iw Signatures: Bridget Rhoades, RN Irving Goode NP ADULT SECONDARY EDUCATION INSTRUCTOR pm1 Janette Bartlett Jennifer, RN RN jg9
[2021-09-23 18:52] VITALS: TEMP 100.1
[2021-09-23 18:59] VITALS: BP 118/97; O2SAT 98
== END 2021-09-23 18:35 | disposition home or self-care (01) ==
LOC: ER 15:11
DX: U07.1 COVID-19 (principal); E11.9 Type 2 diabetes mellitus without complications; I10 Essential (primary) hypertension
CPT/HCPCS: 96361; 87070; 87081; 87804 ×2; 96375; 96374; 99284; U0003; J2765; J1200; J7030

== ENCOUNTER 2021-12-25 19:04 | Emergency (ER) | payer OTHER ==
[2021-12-25] MEDS ORDERED: IBUPROFEN 400 MG TAB ONE (19:31)
--- NOTE | 2021-12-25 20:56 | RAD REPORT ---
EXAM DESCRIPTION: RAD - Hand Left 3 View - 12/25/2021 8:49 pm CLINICAL HISTORY: PAIN COMPARISON: No comparisons FINDINGS/IMPRESSION: No acute fracture. No malalignment. No significant focal degenerative changes.
--- NOTE | 2021-12-25 20:58 | RAD REPORT ---
EXAM DESCRIPTION: RAD - Forearm Right - 12/25/2021 8:49 pm CLINICAL HISTORY: PAIN COMPARISON: No comparisons FINDINGS/IMPRESSION: No acute fracture. No malalignment. No significant focal degenerative changes.
--- NOTE | 2021-12-25 20:58 | RAD REPORT ---
EXAM DESCRIPTION: RAD - Foot Right 3 View - 12/25/2021 8:49 pm CLINICAL HISTORY: PAIN COMPARISON: FOOT W OBLIQUES dated 12/03/2008 FINDINGS/IMPRESSION: Acute fracture at the proximal fifth metatarsal involving the metadiaphysis. Th e fracture extends to the articular surface. Slight distraction.
--- NOTE | 2021-12-25 20:58 | RAD REPORT ---
EXAM DESCRIPTION: RAD - Ankle Right 2 View - 12/25/2021 8:49 pm CLINICAL HISTORY: PAIN COMPARISON: No comparisons FINDINGS/IMPRESSION: No acute fracture. No malalignment. No significant focal degenerative changes.
--- NOTE | 2021-12-25 21:31 | EDPHYS ---
Physician Documentation [facility] Name: Cleo Farris Age: 56 yrs Sex: Female : 1965 Arrival Date: 12/25/2021 Time: 19:08 Bed 10 Private MD: ED Physician Sarkis Grewal HPI: 12/26 00:06 This 56 yrs old Female presents to ER via Wheelchair with complaints of Fall kb Injury, Foot Injury, Ankle Injury. 00:06 Details of fall: The patient fell from an upright position, while walking. Onset: The kb symptoms/episode began/occurred today. Associated injuries: The patient sustained right foot, ecchymosis, painful injury, anterior aspect of right shoulder, painful injury, palmar aspect of right forearm, abrasion, painful injury, palm of left hand, ecchymosis, painful injury. Severity of symptoms: At their worst the symptoms were moderate, in the emergency department the symptoms are unchanged. The patient has not experienced similar symptoms in the past. The patient has not recently seen a physician. Historical: - Allergies: 12/25 19:30 No Known Drug Allergies; hb - Home Meds: 21:22 atorvastatin 40 mg Oral tab 1 tab once daily [Active]; meloxicam 15 mg Oral TbDi 1 tab kd3 once daily [Active]; lisinopril Oral [Active]; metformin 500 mg Oral tr24 1 tab once daily [Active]; Glipizide Oral [Active]; Metformin Oral [Active]; - PMHx: 19:30 Diabetes - NIDDM; Heart Murmur; High Cholesterol; Hypertension; hb - Immunization history:: Adult Immunizations up to date. - Social history:: Smoking status: Patient denies any tobacco usage or history of. ROS: 23:37 Constitutional: Negative for fever, chills, and weight loss. kb 23:37 MS/extremity: Positive for ecchymosis, pain, swelling, tenderness, of the palm of left hand and palmar aspect of right forearm and anterior aspect of right shoulder and dorsum of right foot. 12/26 00:06 All other systems are negative. kb Exam: 00:05 Constitutional: This is a well developed, well nourished patient who is awake, alert, kb and in no acute distress. Head/Face: Normocephalic, atraumatic. ENT: Moist Mucous membranes Respiratory: Respirations even and unlabored. No increased work of breathing. Talking in full sentences Skin: Warm, dry with normal turgor. Normal color. Neuro: Awake and alert, GCS 15, oriented to person, place, time, and situation. Moves all extremities. Normal gait. Psych: Awake, alert, with orientation to person, place and time. Behavior, mood, and affect are within normal limits. 00:05 Musculoskeletal/extremity: Extremities: grossly normal except: noted in the dorsum of right foot: ecchymosis, pain, swelling, tenderness, noted in the anterior aspect of right shoulder: pain, noted in the palmar aspect of right forearm: abrasion, pain, Noted in palm of left hand: ecchymosis, pain, ROM: intact in all extremities, Circulation is intact in all extremities. Sensation intact. Weight bearing: able to fully bear weight. Vital Signs: 12/25 19:27 BP 168 / 95; Pulse 80; Resp 16; Temp 98.4; Pulse Ox 100% on R/A; Weight 74.84 kg; hb Height 5 ft. 1 in. (154.94 cm); Pain 8/10; 19:27 Body Mass Index 31.18 (74.84 kg, 154.94 cm) hb MDM: 19:26 Patient medically screened. kb 21:25 Data reviewed: vital signs, nurses notes. Data interpreted: Pulse oximetry: on room air kb is 100 %. Interpretation: normal. Counseling: I had a detailed discussion with the patient and/or guardian regarding: the historical points, exam findings, and any diagnostic results supporting the discharge/admit diagnosis, radiology results, the need for outpatient follow up, a orthopedic surgeon, to return to the emergency department if symptoms worsen or persist or if there are any questions or concerns that arise at home. 12/25 19:31 Order name: Foot Right 3 View XRAY; Complete Time: 21:16 kb 12/25 19:31 Order name: Ankle Right 2 View XRAY; Complete Time: 21:16 kb 12/25 19:31 Order name: Humerus Right XRAY; Complete Time: 21:16 kb 12/25 19:31 Order name: Forearm Right XRAY; Complete Time: 21:16 kb 12/25 19:31 Order name: Hand Left 3 View XRAY; Complete Time: 21:16 kb 12/25 21:25 Order name: Short Leg Splint; Complete Time: 21:41 kb 12/25 21:25 Order name: Crutches; Complete Time: 21:41 kb 12/25 21:41 Order name: Ortho shoe; Complete Time: 21:41 mm9 Administered Medications: 19:32 Drug: Motrin (ibuprofen) 800 mg Route: PO; hb 21:49 Follow up: Response: No adverse reaction kd3 19:38 CANCELLED (Duplicate Order): Ibuprofen 800 mg PO once hb Disposition: 12/26 01:14 Co-signature as Attending Physician, Sarkis Grewal DO I was immediately available onsite ms3 in the emergency department for consultation in the care of the patient. Disposition Summary: 12/25/21 21:31 Discharge Ordered Location: Home kb Condition: Stable kb Diagnosis - Displaced fracture of fifth metatarsal bone, right foot kb Followup: kb - With: Emergency Department - When: As needed - Reason: Worsening of condition Followup: kb - With: Private Physician - When: 2 - 3 days - Reason: Recheck today's complaints, Continuance of care, Re-evaluation by your physician Discharge Instructions: - Discharge Summary Sheet kb - Metatarsal Fracture kb - Cast or Splint Care, Adult, [id number] kb Forms: - Medication Reconciliation Form kb - Thank You Letter kb - Antibiotic Education kb - Prescription Opioid Use kb Prescriptions: - Diclofenac Sodium 75 mg Oral tablet,delayed release (DR/EC) - take 1 tablet by ORAL route 2 times per day As needed; 30 tablet; Refills: 0, kb Product Selection Permitted Signatures: Dispatcher [employer] Lindy Butler, ABEBA PILOT PLANT OPERATOR-Stephy Sanderson, RN SARAH Sarkis Grewal DO DO ms3 Ana Dang RN RN kd3 Valentine Rodríguez mm9 Corrections: (The following items were deleted from the chart) 12/25 19:38 19:31 Ibuprofen 800 mg PO once ordered. kb 12/26 00:06 12/25 23:37 MS/extremity: Positive for ecchymosis, pain, swelling, tenderness, kb kb
--- NOTE | 2021-12-25 21:31 | ER ---
Nurse's Notes [facility] Name: Cleo Farris Age: 56 yrs Sex: Female : 1965 Arrival Date: 12/25/2021 Time: 19:08 Bed 10 Private MD: Diagnosis: Displaced fracture of fifth metatarsal bone, right foot Presentation: 12/25 19:27 Chief complaint: Rolled ankle while wearing heels, landed on right side, now c/o pain hb in right shoulder, right foot, right elbow, and left hand. Denies LOC. Abrasions noted to left hand and right shoulder. Bruising noted to top of right foot. Coronavirus screen: At this time, the client does not indicate any symptoms associated with coronavirus-19. Ebola Screen: No symptoms or risks identified at this time. Initial Sepsis Screen: Does the patient meet any 2 criteria? No. Patient's initial sepsis screen is negative. Does the patient have a suspected source of infection? No. Patient's initial sepsis screen is negative. Risk Assessment: Do you want to hurt yourself or someone else? Patient reports no desire to harm self or others. Onset of symptoms was December 25, 2021 at 15:30. 19:27 Method Of Arrival: Wheelchair hb 19:27 Acuity: KYRA 4 hb Triage Assessment: 21:21 General: Appears in no apparent distress. uncomfortable, Behavior is calm, cooperative. kd3 Pain: Complains of pain in right foot. Historical: - Allergies: 19:30 No Known Drug Allergies; hb - Home Meds: 21:22 atorvastatin 40 mg Oral tab 1 tab once daily [Active]; meloxicam 15 mg Oral TbDi 1 tab kd3 once daily [Active]; lisinopril Oral [Active]; metformin 500 mg Oral tr24 1 tab once daily [Active]; Glipizide Oral [Active]; Metformin Oral [Active]; - PMHx: 19:30 Diabetes - NIDDM; Heart Murmur; High Cholesterol; Hypertension; hb - Immunization history:: Adult Immunizations up to date. - Social history:: Smoking status: Patient denies any tobacco usage or history of. Screenin:21 Abuse screen: Denies threats or abuse. Denies injuries from another. Nutritional kd3 screening: No deficits noted. Tuberculosis screening: No symptoms or risk factors identified. Fall Risk Fall in past 12 months (25 points). Ambulatory Aid- Gait- Weak (10 pts.). Assessment: 21:48 General: Appears uncomfortable, Behavior is calm, cooperative. Neuro: Level of kd3 Consciousness is awake, alert, obeys commands, Oriented to person, place, time, situation. Vital Signs: 19:27 BP 168 / 95; Pulse 80; Resp 16; Temp 98.4; Pulse Ox 100% on R/A; Weight 74.84 kg; hb Height 5 ft. 1 in. (154.94 cm); Pain 8/10; 19:27 Body Mass Index 31.18 (74.84 kg, 154.94 cm) hb ED Course: 19:08 Patient arrived in ED. am2 19:24 Lindy Parry FNP-C is PHCP. kb 19:24 Sarkis Grewal DO is Attending Physician. kb 19:30 Triage completed. hb 19:30 Arm band placed on. hb 20:41 Ana Dang, RN is Primary Nurse. kd3 20:51 Foot Right 3 View XRAY In Process Unspecified. EDMS 20:51 Ankle Right 2 View XRAY In Process Unspecified. EDMS 20:51 Humerus Right XRAY In Process Unspecified. EDMS 20:51 Forearm Right XRAY In Process Unspecified. EDMS 20:51 Hand Left 3 View XRAY In Process Unspecified. EDMS 21:21 Patient has correct armband on for positive identification. Bed in low position. Call kd3 light in reach. 21:41 Crutch training done. Ortho shoe applied to right foot. mm9 21:48 No provider procedures requiring assistance completed. Patient did not have IV access kd3 during this emergency room visit. Administered Medications: 19:32 Drug: Motrin (ibuprofen) 800 mg Route: PO; hb 21:49 Follow up: Response: No adverse reaction kd3 19:38 CANCELLED (Duplicate Order): Ibuprofen 800 mg PO once hb Medication: 21:49 VIS not applicable for this client. kd3 Outcome: 21:31 Discharge ordered by . kb 21:49 Discharged to home with crutches. kd3 21:49 Condition: stable 21:49 Discharge instructions given to patient, family, Instructed on discharge instructions, follow up and referral plans. Demonstrated understanding of instructions, follow-up care, Prescriptions given X 1. 21:49 Patient left the ED. kd3 Signatures: Dispatcher [employer] EDLindy Bradley, ARIESC DE-Stephy Sanderson, RN Val Ballesteros Kyli, RN RN kd3 Valentine Rodríguez mm9
[2021-12-25 22:18] VITALS: BP 168/95; TEMP 98.4; O2SAT 100
== END 2021-12-25 21:49 | disposition home or self-care (01) ==
LOC: ER 19:04
PROC: 2W3SX1Z Immobilization of Right Foot using Splint (ICD-10-PCS; principal; 2021-12-25)
DX: S92.351A Displaced fracture of fifth metatarsal bone, right foot, initial encounter for closed fracture (principal); M25.511 Pain in right shoulder; I10 Essential (primary) hypertension; E11.9 Type 2 diabetes mellitus without complications
CPT/HCPCS: 99284

== ENCOUNTER 2022-08-21 21:46 | Emergency (ER) | payer MEDICARE ==
[2022-08-21] MEDS ORDERED: ACETAMINOPHEN 500 MG TAB ONE (23:02)
[2022-08-21 23:03] LABS: Absolute Lymphocytes (CBC) 3.7 K/uL (0.7-4.9); Hematocrit 36.6 % (36.0-45.0); Lymphocytes % 33.2 % (15.3-44.8); MCV 89.4 fL (80-100); MPV 8.2 fL (7.6-11.3); RBC Red Blood Cell Count 4.09 M/uL (3.86-4.86)
[2022-08-21 23:14] LABS: Magnesium 1.6 mg/dL (1.6-2.4); Potassium 3.8 mEq/L (3.5-5.1)
--- NOTE | 2022-08-22 01:25 | ER ---
Nurse's Notes [facility] Name: Cleo Farris Age: 57 yrs Sex: Female : 1965 Arrival Date: 08/21/2022 Time: 21:46 Bed 8 Private MD: Diagnosis: Chest pain, unspecified Presentation: 08/21 22:13 Chief complaint: Patient states: neck pain, bilateral leg pain, chest pain, weakness, lg3 high blood pressure X1 day. Coronavirus screen: Client denies travel out of the [place] in the last 14 days. At this time, the client does not indicate any symptoms associated with coronavirus-19. Ebola Screen: No symptoms or risks identified at this time. Initial Sepsis Screen: Does the patient meet any 2 criteria? No. Patient's initial sepsis screen is negative. Does the patient have a suspected source of infection? No. Patient's initial sepsis screen is negative. Risk Assessment: Do you want to hurt yourself or someone else? Patient reports no desire to harm self or others. Onset of symptoms was August 21, 2022. 22:13 Method Of Arrival: Ambulatory lg3 22:13 Acuity: KYRA 3 lg3 Triage Assessment: 22:15 General: Appears in no apparent distress. uncomfortable, Behavior is calm, cooperative. lg3 Pain: Complains of pain in head, abdomen, right leg, left leg and back. EENT: No deficits noted. No signs and/or symptoms were reported regarding the EENT system. Neuro: No deficits noted. Frias Agitation-Sedation Scale (RASS): 0 - Alert and Calm Level of Consciousness is awake, alert, obeys commands, Oriented to person, place, time, situation. Cardiovascular: Reports chest pain, lightheadedness, Respiratory: No deficits noted. Airway is patent Respiratory effort is even, unlabored, Respiratory pattern is regular, symmetrical. GI: No deficits noted. Abdomen is round non-distended, obese. : No deficits noted. No signs and/or symptoms were reported regarding the genitourinary system. Derm: No deficits noted. No signs and/or symptoms reported regarding the dermatologic system. Skin is intact, is healthy with good turgor, Skin is dry, Skin is normal, Skin temperature is warm. Musculoskeletal: No deficits noted. Circulation, motion, and sensation intact. Range of motion: intact in all extremities. Historical: - Allergies: 22:15 No Known Allergies; lg3 - PMHx: 22:15 Diabetes - NIDDM; Heart Murmur; High Cholesterol; Hypertension; lg3 - PSHx: 22:15 Cholecystectomy; section; lg3 - Immunization history:: Adult Immunizations up to date, Client reports receiving the 2nd dose of the Covid vaccine. - Social history:: Smoking status: Patient denies any tobacco usage or history of. Patient/guardian denies using alcohol. Screenin:00 [facility] ED Fall Risk Assessment (Adult) History of falling in the last 3 months, pf1 including since admission No falls in past 3 months (0 pts) Confusion or Disorientation No (0 pts) Intoxicated or Sedated No (0 pts) Impaired Gait No (0 pts) Mobility Assist Device Used No (0 pt) Altered Elimination No (0 pt) Score/Fall Risk Level 0 - 2 = Low Risk Oriented to surroundings, Maintained a safe environment, Educated pt \T\ family on fall prevention, incl call for assistance when getting out of bed, Assessed \T\ reinforced patient's understanding of fall precautions, Provided non-skid footwear, Hourly rounding (assess needs \T\ fall precautionary measures) done, Used ambulatory aids as needed (educated on \T\ assisted with), Used gait belt as appropriate. 22:00 Abuse screen: Denies threats or abuse. Nutritional screening: No deficits noted. pf1 Tuberculosis screening: No symptoms or risk factors identified. Assessment: 22:00 General: Appears in no apparent distress. comfortable, obese, well groomed, well pf1 developed, Behavior is calm, cooperative, appropriate for age, quiet. 22:00 Pain: Complains of pain in back and chronic right leg and head and mid to right side pf1 chest pain Pain radiates to back Pain currently is 8 out of 10 on a pain scale. Pain began 1 day ago. Neuro: Level of Consciousness is awake, alert, obeys commands, Oriented to person, place, time, situation, Denies weakness headache in left. Cardiovascular: Reports chest pain, Capillary refill < 3 seconds Patient's skin is warm and dry. Respiratory: No deficits noted. Airway is patent Respiratory effort is even, unlabored, Respiratory pattern is regular, symmetrical, Breath sounds are clear bilaterally. GI: No deficits noted. No signs and/or symptoms were reported involving the gastrointestinal system. GI: Abdomen is round non-distended, Bowel sounds present X 4 quads. : No deficits noted. No signs and/or symptoms were reported regarding the genitourinary system. EENT: No deficits noted. No signs and/or symptoms were reported regarding the EENT system. Derm: No deficits noted. No signs and/or symptoms reported regarding the dermatologic system. Musculoskeletal: Circulation, motion, and sensation intact. Capillary refill < 3 seconds, Range of motion: intact in all extremities, Reports pain in back and right leg and head and chest Pain is 8 out of 10 on a pain scale. 23:02 Reassessment: Patient appears in no apparent distress at this time. No changes from pf1 previously documented assessment. Patient and/or family updated on plan of care and expected duration. Pain level reassessed. Patient is alert, oriented x 3, equal unlabored respirations, skin warm/dry/pink. Patient states symptoms have not improved. 08/22 00:00 Reassessment: Patient appears in no apparent distress at this time. Patient and/or pf1 family updated on plan of care and expected duration. Pain level reassessed. Patient is alert, oriented x 3, equal unlabored respirations, skin warm/dry/pink. Patient states feeling better. Patient states symptoms have improved. 01:00 Reassessment: Patient appears in no apparent distress at this time. Patient and/or pf1 family updated on plan of care and expected duration. Pain level reassessed. Patient is alert, oriented x 3, equal unlabored respirations, skin warm/dry/pink. Patient states feeling better. Patient states symptoms have improved. Vital Signs: 08/21 22:13 BP 151 / 87; Pulse 74; Resp 18 S; Pulse Ox 98% on R/A; Weight 90.72 kg; Height 5 ft. 0 lg3 in. (R); 23:00 BP 147 / 85; Pulse 75; Resp 18; Pulse Ox 99% on R/A; Pain 8/10; pf1 08/22 00:00 BP 112 / 68; Pulse 67; Resp 15; Pulse Ox 97% on R/A; Pain 4/10; pf1 01:00 BP 136 / 87; Pulse 70; Resp 15; Pulse Ox 97% on R/A; Pain 4/10; pf1 08/21 22:13 Body Mass Index 39.06 (90.72 kg, 152.4 cm) lg3 23:00 Pain Scale: Adult pf1 08/22 00:00 Pain Scale: Adult pf1 01:00 Pain Scale: Adult pf1 ED Course: 08/21 21:51 Patient arrived in ED. jj6 21:59 Lindy Parry FNP-C is [facility]. kb 21:59 William Riley MD is Attending Physician. kb 22:15 Triage completed. lg3 22:15 Arm band placed on right wrist. lg3 22:15 Patient has correct armband on for positive identification. Placed in gown. Bed in low pf1 position. Call light in reach. Side rails up X 1. 22:20 Client placed on continuous cardiac and pulse oximetry monitoring. NIBP monitoring pf1 applied. radiation monitor on. 22:25 No provider procedures requiring assistance completed. Inserted saline lock: 22 gauge pf1 in left antecubital area, using aseptic technique. Blood collected. 22:25 Patient maintains SpO2 saturation greater than 95% on room air. pf1 22:28 Basic Metabolic Panel Sent. pf1 22:28 CBC with Diff Sent. pf1 22:28 Magnesium Sent. pf1 22:28 NT PRO-BNP Sent. pf1 22:28 Troponin HS Sent. pf1 22:45 Danyell Tobin, RN is Primary Nurse. pf1 22:47 XRAY Chest (1 view) In Process Unspecified. EDMS 08/22 01:34 IV discontinued, intact, bleeding controlled, No redness/swelling at site. Pressure pf1 dressing applied. Administered Medications: 08/21 23:10 Drug: Acetaminophen PO 1000 mg Route: PO; pf1 08/22 00:10 Follow up: Response: No adverse reaction; Marked relief of symptoms; Pain is decreased pf1 01:30 Drug: Ibuprofen PO 600 mg Route: PO; pf1 01:34 Follow up: Response: No adverse reaction; Marked relief of symptoms; Pain is decreased pf1 Medication: 01:40 VIS not applicable for this client. pf1 Outcome: 01:24 Discharge ordered by . kb 01:39 Discharged to home ambulatory, with family. pf1 01:39 Condition: improved 01:39 Discharge instructions given to patient, Instructed on discharge instructions, follow up and referral plans. Demonstrated understanding of instructions, follow-up care. 01:40 Patient left the ED. pf1 Signatures: Dispatcher [employer] EDLindy Bradley FNP-C FNP-Ckb Gibson, Lacie, RN RN lg3 Margarita Booj6 Danyell Tobin RN RN pf1 Corrections: (The following items were deleted from the chart) 08/21 23:02 22:46 General: Appears pf1 pf1
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
[2022-08-22] MEDS ORDERED: IBUPROFEN 400 MG TAB ONE (01:36)
[2022-08-22] MEDS ORDERED: IBUPROFEN 200 MG TAB PO ONE (01:36)
[2022-08-22 03:35] VITALS: O2SAT 97
[2022-08-22 03:37] VITALS: BP 136/87
--- NOTE | 2022-08-22 21:56 | RAD REPORT ---
EXAM DESCRIPTION: RAD - Chest Single View - 08/21/2022 10:46 pm CLINICAL HISTORY: The patient is 57 years old and is Female; CHEST PAIN TECHNIQUE: Frontal view of the chest. COMPARISON: No relevant prior studies available. FINDINGS: Lungs: Unremarkable. No consolidation. Pleural space: Unremarkable. No pneumothorax. Heart: Unremarkable. Mediastinum: Unremarkable. Bones/joints: Unremarkable. IMPRESSION: No acute findings in the chest. Electronically signed by: Claudio Carballo MD 08/21/2022 11:04 PM CDT Due to temporary technical issues with the PACS/Fluency reporting system, reports are being signed by the in house radiologists without review as a courtesy to insure prompt reporting. The interpreting radiologist is fully responsible for the content of the report.
--- NOTE | 2022-08-23 08:21 | EKG ---
Test Date: 2022-08-21 Test Time: 22:22:28 Lumber Inspector: LATANYA MEASUREMENT RESULTS: Intervals: Rate: 73 MO: 164 QRSD: 96 QT: 402 QTc: 442 [place]: P: 69 MO: 164 QRS: -53 T: 23 INTERPRETIVE STATEMENTS: Normal sinus rhythm Left anterior fascicular block Abnormal ECG Compared to ECG 06/21/2020 20:26:28 Myocardial infarct finding no longer present Electronically Signed On 08-23-22 08:18:05 CDT by Doug Eddy
== END 2022-08-22 01:40 | disposition home or self-care (01) ==
LOC: ER 21:46
DX: R07.89 Other chest pain (principal); I10 Essential (primary) hypertension; E11.9 Type 2 diabetes mellitus without complications
CPT/HCPCS: 36415; 71045; 80048; 83735; 83880; 84484; 85025; 93005; 99285

== ENCOUNTER 2023-04-16 07:47 | Day surgery (SDC) | payer OTHER ==
[2023-04-12 08:49] LABS: Absolute Lymphocytes (CBC) 2.2 K/uL (0.7-4.9); Hematocrit 37.5 % (36.0-45.0); Lymphocytes % 21.7 % (15.3-44.8); MCV 89.7 fL (80-100); MPV 7.8 fL (7.6-11.3); Platelets 324 thou/uL (152-406); RBC Red Blood Cell Count 4.18 M/uL (3.86-4.86)
--- NOTE | 2023-04-12 08:52 | RAD REPORT ---
EXAM DESCRIPTION: RAD - Chest Pa And Lat (2 Views) - 04/12/2023 8:46 am CLINICAL HISTORY: pre op for surgery, history of hypertension diabetes COMPARISON: Chest Single View dated 08/21/2022; Chest Pa And Lat (2 Views) dated 06/13/2021; Chest Sing le View dated 06/21/2020; Chest Single View dated 04/08/2017 FINDINGS: Lines: None. Lungs: No evidence of edema or pneumonia. Pleural: No significant pleural effusions or pneumothorax. Cardiac: The heart size is within normal limits. Mediastinum: Within normal limits. Bones: No acute fractures. Other: None IMPRESSION: No acute cardiopulmonary disease.
[2023-04-12 09:11] LABS: Potassium 3.8 mEq/L (3.5-5.1)
--- NOTE | 2023-04-12 13:20 | EKG ---
Test Date: 2023-04-12 Test Time: 09:36:32 Manufacturing Area Manager: DAVID MEASUREMENT RESULTS: Intervals: Rate: 71 ND: 162 QRSD: 86 QT: 372 QTc: 404 [place]: P: 76 ND: 162 QRS: 15 T: 12 INTERPRETIVE STATEMENTS: Normal sinus rhythm Low voltage QRS Borderline ECG Compared to ECG 08/21/2022 22:22:28 Low QRS voltage now present Left anterior fascicular block no longer present Electronically Signed On 04-12-23 13:20:17 HEATING ENGINEER by uKsh Mireles
[2023-04-16] MEDS ORDERED: HYDROMORPHONE HCL 1 MG/ML INJ ONE (07:51)
[2023-04-16] MEDS ORDERED: SUCCINYLCHOLINE 20 MG/ML (10 ML) IV ONE (07:52)
[2023-04-16] MEDS ORDERED: FENTANYL CITR 100 MCG/2 ML ONE (07:55)
[2023-04-16] MEDS ORDERED: LIDOCAINE 2% MPF 5 ML VIAL ONE (07:55)
[2023-04-16] MEDS ORDERED: MIDAZOLAM HCL 2 MG/2 ML INJ ONE (07:55)
[2023-04-16] MEDS ORDERED: propofoL 200 MG/20 ML VIAL IV ONE (07:55)
[2023-04-16] MEDS ORDERED: ONDANSETRON 4 MG/2 ML VIAL ONE (07:55)
[2023-04-16] MEDS ORDERED: ROCURONIUM 50 MG/5 ML VIAL IV ONE (07:55)
[2023-04-16] MEDS ORDERED: NA CHLORIDE 0.9% 1,000 ML ONE (08:14)
[2023-04-16] MEDS: CEFAZOLIN SODIUM 1 GM/VIAL ONE ×2 (08:50→08:55)
[2023-04-16] MEDS ORDERED: GLYCOPYRROLATE 0.2 MG/ML SYR ONE ×2 (09:10→09:42)
[2023-04-16] MEDS ORDERED: KETOROLAC 30 MG/ML INJ ONE (09:42)
[2023-04-16] MEDS ORDERED: NEOSTIGMINE 1 MG/ML -10 ML VIAL ONE (09:42)
--- NOTE | 2023-04-16 09:58 | P.BOP ---
Preoperative diagnosis: tender ventral and umbilical incarcerated hernias Postoperative diagnosis: same, intrabdominal adhesions Primary procedure: Laparoscopic repair incarcerated ventral and umbilical hernias with mesh Estimated blood loss: <10cc Specimen: hernia Findings: incarcerated omentum with many intrabdominal adhesions Anesthesia: General Complications: None Implants: large ventralex mesh Transferred to: Recovery Room Condition: Good
[2023-04-16 10:30] VITALS: O2SAT 93
[2023-04-16 10:55] VITALS: BP 118/64; TEMP 97
[2023-04-16] MEDS ORDERED: CODEINE 30MG/APAP 300MG TAB ONE (11:24)
--- NOTE | 2023-04-16 14:53 | OP ---
Date of Procedure: 04/16/2023 Surgeon: Willie Rodríguez MD Preoperative Diagnosis: Tender ventral and umbilical incarcerated hernias. Postoperative Diagnoses: 1.Tender ventral and umbilical incarcerated hernias. 2.Intraabdominal adhesions. Procedure: Laparoscopic repair of incarcerated ventral and umbilical hernia with mesh. Please refer to the H and P for size. Estimated Blood Loss: Less than 10 cc. Specimen: Hernia. Finding: Incarcerated omentum on those 2 hernias and also many intraabdominal adhesions. Anesthesia: General plus local. Implant: Large Ventralex mesh to cover both defects. Indications For Procedure: This is a case of a 57-year-old patient with multiple intraabdominal surg eries, now she has two bump, 1 in the umbilical and another 1 in the superior ventral region and a fe w centimeter away from the umbilical. She cannot reduce them anymore. It is becoming bigger, tender and she wants that repaired. The benefits, alternatives, and risks of laparoscopic, possible repair , open repair of ventral and umbilical hernia with possible mesh fully explained to the patient which include, but not limited to infection, bleeding, damage to adjacent structures, anesthesia complicat ion, recurrence, NC, and . She also understands this may not relieve any symptoms. She might n eed more than one surgical intervention. She also understands we may be used mesh in that region. T he pros and cons of mesh placement were discussed with the patient and she signed a consent. The pat fang also takes chronic pain medication by her pain management and she will refer to him for postoper ative pain medications. The area of concern was marked by me and the patient in the holding room. Description Of Procedure: The patient was brought to the operating room, placed in supine position, anesthesia was done without complication. Abdomen was prepped and draped in a sterile fashion. Bartolo mahsa 0.5% was injected for local anesthetic, followed by sharp incision of the skin, first in the inf raumbilical region. Incision was carried down to fascia, which was opened under direct vision. Obdulia toneum was encountered and then we noticed a hernia sac present. We used this entry site to then put the trocars through. Vicryl #1 placed inside the fascia. We noticed the fascia is weak, so may nee d some mesh reinforcement. Hernia sac was removed. The Matilde trocar was placed and pneumoperitoneu m was obtained. I placed 5 mm trocars, 2 of them, 1 in the left and 1 in the right side of the abdom en. This allowed me to visualize the center, after which was the cameras to those areas. We noticed extensive intraabdominal adhesions, omentum trapped and those hernia so. With the help of LigaSure, we were able to carefully in a methodical fashion removed those adhesions down, making sure when we reduced them and remove them that there was no bleeding. The adhesions were removed, some of the sma ll bowel and into the anterior abdominal wall was also reduced without any enterotomies. Once we had the defects, we were able to appreciate we create a flap on the skin to approach the more superficial defects and trying to see if we can put the stitches through without having to open the skin. We used that with Vicryl #1 [id number] fashion multiple time. We closed that defect in t his main defect and the other defect, we proceeded to carefully use a Vicryl #1 in a [id number] fashion multiple times. Before we do that, we dropped a mesh on the umbilical region and 1 to cover those defects and overlapped by 3 to 5 cm. This is a large Ventralex mesh. We pulled that to hold a gainst the abdominal wall and then using SorbaFix fixation device, we were able to fixate that circum ferentially. The strap of this mesh was removed and then we proceeded to tie the fascia together, cr eating tight seal. Then with laparoscope, we further fix the mesh anteriorly to make sure it goes nice and flat against the abdominal wall, minimizing the chance to get any bowel in between. Once we have those and we see no bleeding, we proceeded then to check the area of the lysis of adhe sions no bleeding and then carefully removed the 5 mm trocars under direct visualization, deflated pn eumoperitoneum. Then, after that, I proceeded to irrigate the area, closed the subcutaneous tissue w ith 3-0 chromic and the skin with chalo. Sponge count, instrument counts correct. The patient dionicio erated the procedure well. The patient was sent to recovery in stable condition. Disposition: Home. Activity: As tolerated. No heavy lifting. Follow up in my office in 1 week. Call for appointment [phone]. Keep area dry for 48 hours, then may shower. Remove outer dressings and shower and then c over that with triple antibiotics ointment and Band-Aid. Condition: Stable. Medications were previously called except the pain medication because she has her own pain management doctor. Abdominal binder while she is out of bed. LUANNE/SAIRA Voice ID: [id number] Report ID: [id number]
== END 2023-04-16 12:30 | disposition home or self-care (01) ==
LOC: OR 07:47
PROVIDERS: ATTEND Surgery
PROC: 0WUF4JZ Supplement Abdominal Wall with Synthetic Substitute, Percutaneous Endoscopic Approach (ICD-10-PCS; principal; 2023-04-16 08:30)
DX: K42.0 Umbilical hernia with obstruction, without gangrene (principal); K43.6 Other and unspecified ventral hernia with obstruction, without gangrene
CPT/HCPCS: 49594; 93005; 85025; 80048; 36415; 82947 ×2; 88302; 71046; J2704; J2710; J2001; J2250; J3010; J1170; J2405; J7030; J0690

== ENCOUNTER 2023-12-28 23:34 | Emergency (ER) | payer OTHER ==
[2023-12-29] MEDS ORDERED: methocarbamoL 500 MG TAB ONE (00:15)
[2023-12-29] MEDS ORDERED: PROMETHAZINE 25 MG TABLET ONE (00:15)
[2023-12-29] MEDS ORDERED: DIAZEPAM 5 MG TABLET ONE (00:16)
[2023-12-29] MEDS ORDERED: KETOROLAC 30 MG/ML INJ ONE (00:16)
[2023-12-29] MEDS ORDERED: NA CHLORIDE 0.9% 1,000 ML ONE (00:16)
[2023-12-29] MEDS ORDERED: MORPHINE 4 MG/ML SYR ONE (00:16)
[2023-12-29 00:22] LABS: Absolute Basophils 0.1 K/uL (0-0.5); Absolute Eosinophils 0.2 K/uL (0-0.5); Absolute Lymphocytes (CBC) 2.9 K/uL (0.7-4.9); Absolute Monocytes 0.9 K/uL (0.1-1.3); Absolute Neutrophil 4.4 K/uL (1.8-8.0); Eosinophils % 2.6 % (0-4.4); Hematocrit 39.3 % (36.0-45.0); Hemoglobin 13.2 g/dL (12.0-15.0); MCH 30.1 pg (27.0-35.0); MCHC 33.5 g/dL (32.0-36.0); MCV 89.6 fL (80-100); MPV 7.9 fL (7.6-11.3); Monocytes % 10.2 % (3.3-12.3); Neutrophils % 52.2 % (41.7-73.7); Platelets 296 thou/uL (152-406); RBC Red Blood Cell Count 4.38 M/uL (3.86-4.86); Red Cell Distribution Width 13.2 % (12.1-15.2)
[2023-12-29 00:24] LABS: PT Prothrombin Time 9.5 SECONDS (9.4-12.5); Protime INR 0.84
[2023-12-29 00:59] LABS: ALT/SGPT 49 U/L (13-56); AST/SGOT 27 U/L (15-37); Albumin 3.5 g/dL (3.4-5.0); Albumin/Globulin Ratio 0.9 (1.1-1.8); Alkaline Phosphatase 77 U/L (45-117); Anion Gap 7.9 mEq/L (5.0-15.0); BUN Blood Urea Nitrogen 17 mg/dL (7-18); Bicarbonate 26 mEq/L (21-32); Bilirubin Total 0.2 mg/dL (0.2-1.0); C-Reactive Protein 5.74 mg/L (<3.00); Globulin 3.7 g/dL (2.3-3.5); Glomerular Filtration Rate 93 ml/min (=/>90); Glucose Level 272 mg/dL (74-106); Magnesium 1.9 mg/dL (1.6-2.4); NT PRO-BNP 71 pg/mL (<125); Potassium 3.9 mEq/L (3.5-5.1); Protein, Total 7.2 g/dL (6.4-8.2); Sodium Level 135 mEq/L (136-145); Troponin High Sensitivity 4.1 pg/mL (<58.9)
[2023-12-29 01:00] LABS: Bilirubin Direct < 0.2 mg/dL (0-0.2)
[2023-12-29 01:37] LABS: Specific Gravity 1.024 (1.005-1.030); Sqamous Epithelial None Seen /HPF (None Seen); Urine Bacteria None Seen /HPF (<20); Urine Bilirubin NEGATIVE (Negative); Urine Blood Negative (Negative); Urine Clarity Clear (Clear); Urine Color Light-Yellow (Yellow); Urine Culture Reflex Order NOT NEEDED; Urine Glucose 4+ (Over) (Negative); Urine Ketones NEGATIVE (Negative); Urine Microscopic Reflex YN ORDER UMIC; Urine Nitrite NEGATIVE (Negative); Urine Protein NEGATIVE (Negative); Urine RBC None Seen /HPF (None Seen); Urine Urobilinogen Normal (Normal); Urine WBC <5 /HPF (<5); Urine pH 5.5 (5.0-7.0)
[2023-12-29] MEDS ORDERED: TRAMADOL HCL 50 MG TAB ONE (04:44)
--- NOTE | 2023-12-29 04:47 | ER ---
Nurse's Notes [facility] Name: Cleo Farris Age: 58 yrs Sex: Female : 1965 Arrival Date: 12/28/2023 Time: 23:34 Bed 5 Private MD: Diagnosis: Low back pain;Pain in left shoulder;Acute Neck pain, acute musculoskeletal pain Presentation: 12/27 23:45 Chief complaint: Chief complaint: Patient states: PT STATES SHE HAS BEEN HAVING LEFT br2 SHOULDER PAIN THAT RADIATES TO HEAD (GLOBAL) FOR THE LAST 2-3 DAYS. PT TOOK TYLENOL 750MG PO PRIOR TO ARRIVAL. PT DENIES INJURY. Coronavirus screen: Client denies travel out of the [place] in the last 14 days. Ebola Screen: Patient negative for fever greater than or equal to 101.5 degrees Fahrenheit, and additional compatible Ebola Virus Disease symptoms Patient denies exposure to infectious person. Patient denies travel to an Ebola-affected area in the 21 days before illness onset. Initial Sepsis Screen: Does the patient meet any 2 criteria? No. Patient's initial sepsis screen is negative. Does the patient have a suspected source of infection? No. Patient's initial sepsis screen is negative. Risk Assessment: Do you want to hurt yourself or someone else? Patient reports no desire to harm self or others. Onset of symptoms was December 26, 2023. 23:45 Method Of Arrival: EMS: [facility] br2 23:45 Acuity: KYRA 3 br2 Triage Assessment: 12/28 00:07 General: Appears in no apparent distress. comfortable, obese, Behavior is calm, br2 cooperative. Pain: Complains of pain in head, back of head, back of left arm and left hand Pain radiates to face and scalp Pain currently is 8 out of 10 on a pain scale. EENT: No signs and/or symptoms were reported regarding the EENT system. Neuro: [place] Agitation-Sedation Scale (RASS): 0 - Alert and Calm Level of Consciousness is awake, alert, obeys commands, confused, Oriented to person, place, time. Cardiovascular: Denies chest pain, Capillary refill < 3 seconds. Respiratory: Airway is patent Respiratory effort is even, labored, Respiratory pattern is regular. GI: No signs and/or symptoms were reported involving the gastrointestinal system. : Reports urinary frequency. Derm: No signs and/or symptoms reported regarding the dermatologic system. Musculoskeletal: Circulation, motion, and sensation intact. Capillary refill < 3 seconds, Range of motion: intact in all extremities. Historical: - PMHx: 00:07 Diabetes - NIDDM; Heart Murmur; Hypertension; High Cholesterol; br2 - PSHx: 00:07 section; Cholecystectomy; hernia repair (ys); br2 - Immunization history:: Adult Immunizations not up to date. - Infectious Disease History:: Denies. - Social history:: Smoking status: Patient denies any tobacco usage or history of. - Family history:: not pertinent. Screenin/18 23:45 [facility] ED Fall Risk Assessment (Adult) History of falling in the last 3 months, br2 including since admission No falls in past 3 months (0 pts) Confusion or Disorientation No (0 pts) Intoxicated or Sedated No (0 pts) Impaired Gait No (0 pts) Mobility Assist Device Used No (0 pt) Altered Elimination No (0 pt) Score/Fall Risk Level 0 - 2 = Low Risk Oriented to surroundings. Abuse screen: Denies threats or abuse. Denies injuries from another. Nutritional screening: No deficits noted. Tuberculosis screening: No symptoms or risk factors identified. Assessment: 23:45 Reassessment: SEE TRIAGE ASSESSMENT. br2 12/28 01:00 Reassessment: No changes from previously documented assessment. Patient and/or family br2 updated on plan of care and expected duration. Pain level reassessed. Patient is alert, oriented x 3, equal unlabored respirations, skin warm/dry/pink. 02:00 Reassessment: Patient and/or family updated on plan of care and expected duration. Pain br2 level reassessed. Patient is alert, oriented x 3, equal unlabored respirations, skin warm/dry/pink. Patient states feeling better. Patient states symptoms have improved. 03:14 Reassessment: Patient and/or family updated on plan of care and expected duration. Pain br2 level reassessed. Patient is alert, oriented x 3, equal unlabored respirations, skin warm/dry/pink. RESTING WITH EYES CLOSED, NO DISTRESS NOTED Patient states feeling better. Patient states symptoms have improved. Vital Signs: 12/27 23:45 BP 140 / 76; Pulse 79; Resp 18 S; Temp 97.2; Pulse Ox 97% on R/A; Weight 86.18 kg; br2 Height 5 ft. 0 in. ; Pain 8/10; 12/28 00:00 BP 140 / 70; Pulse 70; Resp 18; Pulse Ox 99% ; vc1 01:00 BP 131 / 85; Pulse 64; Resp 18 S; Pulse Ox 96% on R/A; Pain 3/10; br2 02:00 BP 131 / 85; Pulse 64; Resp 18 S; Pulse Ox 96% on R/A; br2 02:00 BP 117 / 72; Pulse 63; Resp 18 S; Pulse Ox 94% on R/A; br2 03:00 BP 126 / 71; Pulse 69; Resp 18; Temp 97.2; Pulse Ox 96% on R/A; br2 04:36 BP 122 / 88; Pulse 61; Resp 18 S; Pulse Ox 98% on R/A; br2 12/27 23:45 Body Mass Index 37.11 (86.18 kg, 152.4 cm) br2 12/27 23:45 Pain Scale: Adult br2 01:00 Pain Scale: Adult br2 [place] Coma Score: 04:34 Eye Response: spontaneous(4). Motor Response: obeys commands(6). Verbal Response: sp4 oriented(5). Total: 15. NIH Stroke Scale Scores: 04:34 NIHSS Score: 0 sp4 ED Course: 12/27 23:38 Patient arrived in ED. jj6 23:43 George Heard MD is Attending Physician. sp4 23:45 Inserted saline lock: 20 gauge in left antecubital area, using aseptic technique. Blood br2 collected. Flushed with 10 mL NS. 23:45 Patient has correct armband on for positive identification. Placed in gown. Bed in low br2 position. Call light in reach. Side rails up X 1. Provided Education on: PLAN OF CARE. 23:50 Arm band placed on right wrist. br2 12/28 00:01 Ángela Garcia, SARAH is Primary Nurse. br2 00:07 Triage completed. br2 00:25 Basic Metabolic Panel Sent. br2 00:25 CBC with Diff Sent. br2 00:25 LFT's Sent. br2 00:25 Magnesium Sent. br2 00:25 NT PRO-BNP Sent. br2 00:25 Troponin HS Sent. br2 02:01 CT Aorta for Dissection In Process Unspecified. EDMS 04:50 No provider procedures requiring assistance completed. IV discontinued, intact, br2 bleeding controlled, No redness/swelling at site. Pressure dressing applied. Administered Medications: 00:25 Drug: Methocarbamol PO 1500 mg PO once Route: PO; br2 01:00 Follow up: Response: No adverse reaction br2 00:25 Drug: Promethazine PO 25 mg PO once Route: PO; br2 01:00 Follow up: Response: No adverse reaction br2 00:25 Drug: NS 0.9% IV 1000 ml IV at 1 bolus Per protocol; to be given as a bolus over 60 br2 minutes Route: IV; Rate: 1 bolus; Site: left antecubital; 01:30 Follow up: Response: No adverse reaction; IV Status: Completed infusion; IV Intake: br2 1000ml 00:31 Drug: Diazepam PO 5 mg PO once Route: PO; br2 01:00 Follow up: Response: No adverse reaction br2 00:32 Drug: morphine IVP or IV 4 mg IVP once over 4 mins Route: IVP; Infused Over: 4 mins; br2 Site: left antecubital; 01:00 Follow up: Response: No adverse reaction br2 00:32 Drug: Ketorolac IVP 30 mg IVP once Route: IVP; Site: left antecubital; br2 01:00 Follow up: Response: No adverse reaction br2 04:50 Drug: traMADol PO 100 mg PO once Route: PO; br2 04:50 Follow up: Response: Medication administered at discharge. br2 Medication: 04:50 VIS not applicable for this client. br2 Intake: 01:30 IV: 1000ml; Total: 1000ml. br2 Outcome: 04:47 Discharge ordered by spMariposa 04:50 Discharged to home via wheelchair, br2 04:50 Condition: improved 04:50 Discharge instructions given to patient, Instructed on discharge instructions, Demonstrated understanding of instructions, Prescriptions given X 3, 05:16 Patient left the ED. br2 NIH Stroke Scale - NIH Stroke Score Date: 12/29/2023 Time: 04:34 Total Score = 0 10. Dysarthria (speech clarity - read or repeat words) - 0(Normal) 11. Extinction and Inattention (visual/tactile/auditory/spatial/personal) - 0(No abnormality) 1a. Level of Consciousness (LOC) - 0(Alert) 1b. Level of Consciousness (LOC) (Month \T\ Age) - 0(Both) 1c. LOC Commands (Open \T\ Closes Eyes/Test Deskman) - 0(Both) 2. Best Gaze (Lateral Gaze Paresis) - 0(Normal) 3. Visual Field Loss - 0(No visual loss) 4. Facial Palsy - 0(Normal) 5a. Left Arm: Motor (10-second hold) - 0(No drift) 5b. Right Arm: Motor (10-second hold) - 0(No drift) 6a. Left Leg: Motor (5-second hold - always test supine) - 0(No drift) 6b. Right Leg: Motor (5-second hold - always test supine) - 0(No drift) 7. Limb Ataxia (finger/nose \T\ heel/newby - test with eyes open) - 0(Absent) 8. Sensory Loss (pinprick arms/legs/face) - 0(Normal) 9. Best Language: Aphasia (description/naming/reading) - 0(No aphasia) Initials: sp4 Signatures: Dispatcher [employer] EDMS Margarita Boo [id number] Estephania Lucas RN RN vc1 George Heard MD MD sp4 Ángela Garcia RN RN br2
--- NOTE | 2023-12-29 04:48 | EDPHYS ---
Physician Documentation [facility] Name: Cleo Farris Age: 58 yrs Sex: Female : 1965 Arrival Date: 12/28/2023 Time: 23:34 Bed 5 Private MD: ED Physician George Heard HPI: 12/27 23:43 This 58 yrs old Female presents to ER via Unassigned with complaints of sp4 Shoulder Pain. 12/28 00:46 This is 58-year-old female who presents with EMS with complaint of diffuse spinal pain sp4 left shoulder pain and neck pain. Patient states pain started 2 days ago. . Historical: - PMHx: 00:07 Diabetes - NIDDM; Heart Murmur; Hypertension; High Cholesterol; br2 - PSHx: 00:07 section; Cholecystectomy; hernia repair (ys); br2 - Immunization history:: Adult Immunizations not up to date. - Infectious Disease History:: Denies. - Social history:: Smoking status: Patient denies any tobacco usage or history of. - Family history:: not pertinent. ROS: 00:46 Constitutional: Negative for fever, chills, and weight loss, today for left shoulder sp4 pain positive for upper and lower back pain positive for neck pain. 00:46 All other systems are negative, Exam: 04:30 Constitutional: This is a well developed, well nourished patient who is awake, alert, sp4 and in no acute distress. Head/Face: Normocephalic, atraumatic. Eyes: Pupils equal round and reactive to light, extra-ocular motions intact. Lids and lashes normal. Conjunctiva and sclera are not injected. Cornea within normal limits. Periorbital areas with no swelling, redness, or edema. ENT: Nares patent. No nasal discharge, no septal abnormalities noted. Tympanic membranes are normal and external auditory canals are clear. Oropharynx with no redness, swelling, or masses, exudates, or evidence of obstruction, uvula midline. Mucous membranes moist. Neck: Trachea midline, no thyromegaly or masses palpated, and no cervical lymphadenopathy. Supple, full range of motion without nuchal rigidity, or vertebral point tenderness. Chest/axilla: Normal chest wall appearance and motion. Nontender with no deformity. No lesions are appreciated. Cardiovascular: Regular rate and rhythm with a normal S1 and S2. No gallops, murmurs, or rubs. Normal PMI, no JVD. No pulse deficits. Respiratory: Lungs have equal breath sounds bilaterally, clear to auscultation and percussion. No rales, rhonchi or wheezes noted. No increased work of breathing, no retractions or nasal flaring. Abdomen/GI: Soft, with normal bowel sounds. No distension or tympany. No guarding or rebound. No evidence of tenderness throughout. Back: No spinal tenderness. No costovertebral tenderness. Skin: Warm, dry with normal turgor. Normal color with no rashes, no lesions, and no evidence of cellulitis. MS/ Extremity: Pulses equal, no cyanosis. Neurovascular intact. Full, normal range of motion. Neuro: Awake and alert, GCS 15, oriented to person, place, time, and situation. Cranial nerves II-XII grossly intact. Motor strength 5/5 in all extremities. Sensory grossly intact. Psych: Awake, alert, with orientation to person, place and time. Behavior, mood, and affect are within normal limits 04:34 ECG was reviewed by the Attending Physician. EKG at 0046 normal sinus rhythm rate sp4 68, left anterior fascicular block, no ST elevation or depression, no ectopy, normal EKG Vital Signs: 12/27 23:45 BP 140 / 76; Pulse 79; Resp 18 S; Temp 97.2; Pulse Ox 97% on R/A; Weight 86.18 kg; br2 Height 5 ft. 0 in. ; Pain 8/10; 12/28 00:00 BP 140 / 70; Pulse 70; Resp 18; Pulse Ox 99% ; vc1 01:00 BP 131 / 85; Pulse 64; Resp 18 S; Pulse Ox 96% on R/A; Pain 3/10; br2 02:00 BP 131 / 85; Pulse 64; Resp 18 S; Pulse Ox 96% on R/A; br2 02:00 BP 117 / 72; Pulse 63; Resp 18 S; Pulse Ox 94% on R/A; br2 03:00 BP 126 / 71; Pulse 69; Resp 18; Temp 97.2; Pulse Ox 96% on R/A; br2 04:36 BP 122 / 88; Pulse 61; Resp 18 S; Pulse Ox 98% on R/A; br2 12/27 23:45 Body Mass Index 37.11 (86.18 kg, 152.4 cm) br2 12/27 23:45 Pain Scale: Adult br2 01:00 Pain Scale: Adult br2 NIH Stroke Scale Scores: 04:34 NIHSS Score: 0 sp4 [place] Coma Score: 04:34 Eye Response: spontaneous(4). Motor Response: obeys commands(6). Verbal Response: sp4 oriented(5). Total: 15. MDM: 00:17 Medical Screening Exam initiated sp4 00:46 Differential diagnosis: humeral head fracture, glenoid fracture, DJD, tendonitis. Data sp4 reviewed: vital signs, nurses notes, EMS record, old medical records, lab test result(s), EKG, radiologic studies, CT scan. Consideration of Admission/Observation Escalation of care including admission/observation considered. ED course: Has improved after medications,. Patient stable for discharge home workup overall is negative for acute medical emergency. 04:30 ED course: EXAM DESCRIPTION: Angio Aorta For Dissection CLINICAL HISTORY: chest pain sp4 COMPARISON: None Available. TECHNIQUE: CTA of the chest, abdomen and pelvis obtained following IV administration of iodinated contrast. 3-D/MIP reformatted images available. This exam was performed according to our departmental dose-optimization program, which includes automated exposure control, adjustment of the mA and/or kV according to patient size and/or use of iterative reconstruction technique. FINDINGS: Chest: Pulmonary arteries: Contrast bolus is adequate.No filling defects identified in the pulmonary arteries to suggest pulmonary embolus. Thyroid:No abnormalities of the visualized thyroid. Great Vessels:Great vessels have normal anatomic configuration. Thoracic Aorta:Normal caliber without evidence of dissection. Heart:No cardiomegaly, significant pericardial effusion, or coronary artery atherosclerosis Lymph Nodes:No enlarged mediastinal lymph nodes identified. Esophagus:Small hiatal hernia. Other:No additional findings. Lungs:No airspace opacities identified. Pleura:No pleural effusion or pneumothorax. Trachea/Airways:No abnormalities of the visualized trachea or airways. Abdomen: Liver: The liver has normal size and decreased density. Gallbladder: Prior cholecystectomy. Spleen, Pancreas, and Adrenal Glands: The spleen, pancreas, and adrenal glands are unremarkable. Kidneys: No hydronephrosis or obstructing ureteral calculus. Vasculature: Normal caliber abdominal aorta with straight line flow into the common iliac and external iliac arteries. Aortoiliac atherosclerosis. The portal vein is patent. The proximal visceral and renal arteries are patent. Stomach: Small hiatal hernia. Other: No free intraperitoneal air. No free fluid. Calcified mesenteric nodules likely representing calcified lymph nodes possibly related to previous no pneumatosis exposure. Subcutaneous injection sites. Pelvis: Bladder: Urinary bladder is unremarkable. Bowel: No dilated loops of large or small bowel. Moderate amount stool. Scattered diverticula of colon. Mild wall thickening in the proximal small bowel. Appendix: Normal appendix. Pelvis:Uterus is not enlarged. Bones: Mild multilevel endplate spondylosis and facet arthropathy. Dissection IMPRESSION: 1. No evidence of aortic dissection or aneurysm. No pulmonary embolus. 2. Mild wall thickening of the proximal small bowel. These findings could be seen with nonspecific enteritis. 3. Diverticulosis without evidence of acute diverticulitis. 4. Hepatic steatosis. 5. Small hiatal hernia. Electronically signed by: Phillip Franklin DO 12/29/2023 03:13 AM CDT RP. 12/27 23:45 Order name: Basic Metabolic Panel; Complete Time: 04:30 sp4 12/27 23:45 Order name: CBC with Diff; Complete Time: 04:30 sp4 12/27 23:45 Order name: LFT's; Complete Time: 04:30 sp4 12/27 23:45 Order name: Magnesium; Complete Time: 04:30 sp4 12/27 23:45 Order name: NT PRO-BNP; Complete Time: 04:30 sp4 12/27 23:45 Order name: PT-INR; Complete Time: 04:30 sp4 12/27 23:45 Order name: Troponin HS; Complete Time: 04:30 sp4 12/27 23:45 Order name: CRP; Complete Time: 04:30 sp4 12/28 01:07 Order name: Urinalysis w/ reflexes; Complete Time: 04:30 br2 12/27 23:45 Order name: CT Aorta for Dissection sp4 12/27 23:45 Order name: EKG; Complete Time: 23:45 sp4 12/27 23:45 Order name: Cardiac monitoring; Complete Time: 00:31 sp4 12/27 23:45 Order name: EKG - Nurse/Tech; Complete Time: 00:50 sp4 12/27 23:45 Order name: IV Saline Lock; Complete Time: 00: sp4 12/27 23:45 Order name: Labs collected and sent; Complete Time: sp4 12/27 23:45 Order name: O2 Per Protocol; Complete Time: sp4 12/27 23:45 Order name: O2 Sat Monitoring; Complete Time: sp4 EC:46 Rate is 68 beats/min. Rhythm is regular, Normal Sinus Rhythm. QRS [place] is Normal. MD sp4 interval is normal. QRS interval is normal. QT interval is normal. No Q waves. T waves are Normal. No ST changes noted. Clinical impression: No evidence of ischemia. Interpreted by me. Reviewed by me. Administered Medications: 00:25 Drug: Methocarbamol PO 1500 mg PO once Route: PO; br2 01:00 Follow up: Response: No adverse reaction br2 00:25 Drug: Promethazine PO 25 mg PO once Route: PO; br2 01:00 Follow up: Response: No adverse reaction br2 00:25 Drug: NS 0.9% IV 1000 ml IV at 1 bolus Per protocol; to be given as a bolus over 60 br2 minutes Route: IV; Rate: 1 bolus; Site: left antecubital; 01:30 Follow up: Response: No adverse reaction; IV Status: Completed infusion; IV Intake: br2 1000ml 00:31 Drug: Diazepam PO 5 mg PO once Route: PO; br2 01:00 Follow up: Response: No adverse reaction br2 00:32 Drug: morphine IVP or IV 4 mg IVP once over 4 mins Route: IVP; Infused Over: 4 mins; br2 Site: left antecubital; 01:00 Follow up: Response: No adverse reaction br2 00:32 Drug: Ketorolac IVP 30 mg IVP once Route: IVP; Site: left antecubital; br2 01:00 Follow up: Response: No adverse reaction br2 04:50 Drug: traMADol PO 100 mg PO once Route: PO; br2 04:50 Follow up: Response: Medication administered at discharge. br2 Disposition Summary: 12/29/23 04:47 Discharge Ordered Notes: Location: Home sp4 Problem: new sp4 Symptoms: have improved sp4 Condition: Stable sp4 Diagnosis - Low back pain sp4 - Pain in left shoulder sp4 - Acute Neck pain, acute musculoskeletal pain sp4 Followup: sp4 - With: Private Physician - When: 7 - 10 days - Reason: Recheck today's complaints Discharge Instructions: - Discharge Summary Sheet sp4 - Acute Back Pain, Adult sp4 Forms: - Patient Portal Instructions sp4 Prescriptions: - Ibuprofen 800 mg Oral Tablet - take 1 tablet ORAL route every 8 hours As needed take with food; 30 tablet; sp4 Refills: 0, Product Selection Permitted - Tramadol 50 mg Oral tablet - take 1 tablet ORAL route every 8 hours as needed; 20 tablet; Refills: 0, sp4 Product Selection Permitted - methocarbamol 750 mg Oral tablet - take 2 tablets ORAL route every 8 hours for 2 days; 30 tablet; Refills: 0, sp4 Product Selection Permitted NIH Stroke Scale - NIH Stroke Score Date: 12/29/2023 Time: 04:34 Total Score = 0 10. Dysarthria (speech clarity - read or repeat words) - 0(Normal) 11. Extinction and Inattention (visual/tactile/auditory/spatial/personal) - 0(No abnormality) 1a. Level of Consciousness (LOC) - 0(Alert) 1b. Level of Consciousness (LOC) (Month \T\ Age) - 0(Both) 1c. LOC Commands (Open \T\ Closes Eyes/Chute Tender) - 0(Both) 2. Best Gaze (Lateral Gaze Paresis) - 0(Normal) 3. Visual Field Loss - 0(No visual loss) 4. Facial Palsy - 0(Normal) 5a. Left Arm: Motor (10-second hold) - 0(No drift) 5b. Right Arm: Motor (10-second hold) - 0(No drift) 6a. Left Leg: Motor (5-second hold - always test supine) - 0(No drift) 6b. Right Leg: Motor (5-second hold - always test supine) - 0(No drift) 7. Limb Ataxia (finger/nose \T\ heel/newby - test with eyes open) - 0(Absent) 8. Sensory Loss (pinprick arms/legs/face) - 0(Normal) 9. Best Language: Aphasia (description/naming/reading) - 0(No aphasia) Initials: sp4 Signatures: Dispatcher [employer] George Garcia MD MD sp4 Ángela Garcia RN RN br2 Corrections: (The following items were deleted from the chart) 01:07 01:07 Urinalysis+U.LAB.BRZ ordered. EDMS EDMS
--- NOTE | 2023-12-29 06:28 | RAD REPORT ---
EXAM DESCRIPTION: Angio Aorta For Dissection CLINICAL HISTORY: chest pain COMPARISON: None Available. TECHNIQUE: CTA of the chest, abdomen and pelvis obtained following IV administration of iodinated con trast. 3-D/MIP reformatted images available. This exam was performed according to our departmental dose-optimization program, which includes automated exposure control, adjustment of the mA and/or kV according to patient size and/or use of iterative reconstruction technique. FINDINGS: Chest: Pulmonary arteries: Contrast bolus is adequate.No filling defects identified in the pulmonary arterie s to suggest pulmonary embolus. Thyroid: No abnormalities of the visualized thyroid. Great Vessels: Great vessels have normal anatomic configuration. Thoracic Aorta: Normal caliber without evidence of dissection. Heart: No cardiomegaly, significant pericardial effusion, or coronary artery atherosclerosis Lymph Nodes: No enlarged mediastinal lymph nodes identified. Esophagus: Small hiatal hernia. Other: No additional findings. Lungs: No airspace opacities identified. Pleura: No pleural effusion or pneumothorax. Trachea/Airways: No abnormalities of the visualized trachea or airways. Abdomen: Liver: The liver has normal size and decreased density. Gallbladder: Prior cholecystectomy. Spleen, Pancreas, and Adrenal Glands: The spleen, pancreas, and adrenal glands are unremarkable. Kidneys: No hydronephrosis or obstructing ureteral calculus. Vasculature: Normal caliber abdominal aorta with straight line flow into the common iliac and externa l iliac arteries. Aortoiliac atherosclerosis. The portal vein is patent. The proximal visceral and renal arteries are patent. Stomach: Small hiatal hernia. Other: No free intraperitoneal air. No free fluid. Calcified mesenteric nodules likely representi ng calcified lymph nodes possibly related to previous no pneumatosis exposure. Subcutaneous injection sites. Pelvis: Bladder: Urinary bladder is unremarkable. Bowel: No dilated loops of large or small bowel. Moderate amount stool. Scattered diverticula of co christian. Mild wall thickening in the proximal small bowel. Appendix: Normal appendix. Pelvis: Uterus is not enlarged. Bones: Mild multilevel endplate spondylosis and facet arthropathy. IMPRESSION: 1. No evidence of aortic dissection or aneurysm. No pulmonary embolus. 2. Mild wall thickening of the proximal small bowel. These findings could be seen with nonspecific enteritis. 3. Diverticulosis without evidence of acute diverticulitis. 4. Hepatic steatosis. 5. Small hiatal hernia. Electronically signed by: Phillip Franklin DO 12/29/2023 03:13 AM CDT RP [id number] Due to temporary technical issues with the PACS/[employer] reporting system, reports are being wes d by the in-house radiologist without review as a courtesy to ensure prompt reporting the interpreting radiologist is fully responsible for the content of the report. Transcribed Date/Time: 12/29/2023 6:28 AM
[2023-12-29 10:57] VITALS: TEMP 97.2
[2023-12-29 11:05] VITALS: BP 122/88; O2SAT 98
--- NOTE | 2024-01-01 13:01 | EKG ---
Test Date: 2023-12-29 Test Time: 00:46:43 Gospel Worker: RAVEN MEASUREMENT RESULTS: Intervals: Rate: 68 GA: 168 QRSD: 100 QT: 414 QTc: 440 [place]: P: 61 GA: 168 QRS: -61 T: 0 INTERPRETIVE STATEMENTS: Normal sinus rhythm Low voltage QRS Left anterior fascicular block Septal infarct, age undetermined Abnormal ECG Compared to ECG 04/12/2023 09:36:32 Left anterior fascicular block now present Myocardial infarct finding now present Electronically Signed On 01-01-24 12:52:45 CDT by Sheldon Diaz
== END 2023-12-29 05:16 | disposition home or self-care (01) ==
LOC: ER 23:34
DX: M54.50 Low back pain, unspecified (principal); M25.512 Pain in left shoulder; M54.2 Cervicalgia; M79.18 Myalgia, other site; E11.9 Type 2 diabetes mellitus without complications; I10 Essential (primary) hypertension
CPT/HCPCS: 96361; 93005; 85025; 81001; 80048; 36415; 83735; 85610; 80076; 84484; 83880; 86140; 71275; 74175; 96375; 96374; 99284; Q9967; Q0169; J7030

== ENCOUNTER 2024-04-16 16:26 | Emergency (ER) | payer OTHER ==
[2024-04-16 17:17] LABS: Absolute Basophils 0.1 K/uL (0-0.5); Absolute Eosinophils 0.2 K/uL (0-0.5); Absolute Lymphocytes (CBC) 3.1 K/uL (0.7-4.9); Absolute Monocytes 0.7 K/uL (0.1-1.3); Absolute Neutrophil 7.6 K/uL (1.8-8.0); Basophils % 0.6 % (0-1.3); Eosinophils % 1.4 % (0-4.4); Hemoglobin 12.8 g/dL (12.0-15.0); Lymphocytes % 26.6 % (15.3-44.8); MCHC 33.8 g/dL (32.0-36.0); MCV 88.8 fL (80-100); MPV 7.7 fL (7.6-11.3); Monocytes % 5.8 % (3.3-12.3); Neutrophils % 65.6 % (41.7-73.7); Platelets 330 thou/uL (152-406); RBC Red Blood Cell Count 4.27 M/uL (3.86-4.86); Red Cell Distribution Width 13.2 % (12.1-15.2)
[2024-04-16 17:35] LABS: Anion Gap 7.3 mEq/L (5.0-15.0); Potassium 4.3 mEq/L (3.5-5.1)
--- NOTE | 2024-04-16 17:49 | EDPHYS ---
Physician Documentation [facility] Name: Cleo Farris Age: 58 yrs Sex: Female : 1965 Arrival Date: 04/16/2024 Time: 16:26 Bed DX3 Private MD: ED Physician Brett Daigle HPI: 04/16 16:43 This 58 yrs old Female presents to ER via Unassigned with complaints of neck ec2 pain, Vomiting. 16:43 Patient arrives today for evaluation of myalgias. Patient reports that she has been ec2 having headache as well as neck pain, bilateral shoulder and arm pain. No falls injuries or trauma.. Historical: - Allergies: 16:48 No Known Allergies; iw - PMHx: 16:47 Diabetes - NIDDM; Heart Murmur; High Cholesterol; High Cholesterol; Hypertension; iw - PSHx: 16:47 section; Cholecystectomy; hernia repair; iw - Immunization history:: Adult Immunizations not up to date. - Infectious Disease History:: Denies. - Social history:: Smoking status: Patient denies any tobacco usage or history of. ROS: 16:44 Constitutional: as per hpi ec2 Exam: 16:44 Constitutional: GEN: NAD Head: atraumatic Eyes: EOMI Ears: External ears are ec2 normal. CV: regular rate LUNGS: no respiratory distress ABD: non-distended SKIN: no evidence of rashes MSK: no evidence of trauma Vital Signs: 16:46 BP 136 / 86; Pulse 77; Resp 16; Temp 97.4; Pulse Ox 95% on R/A; iw 18:44 BP 166 / 69; Pulse 74; Resp 16; Pulse Ox 100% on R/A; iw MDM: 16:51 Data reviewed: vital signs, nurses notes. ED course: Patient arrives today for ec2 evaluation of multiple MSK pains. Examination is unrevealing. Will obtain lab work.. 17:12 Medical Screening Exam initiated ec2 17:48 ED course: CBC and metabolic profile reassuring. Will discharge home. Suspect MSK pain. ec2 Return precautions given.. 02 16:43 Order name: CBC with Diff; Complete Time: 17:47 ec2 04/16 16:43 Order name: BMP; Complete Time: 17:47 ec2 04/16 16:43 Order name: IV; Complete Time: 17:10 ec2 Administered Medications: 18:30 Drug: Ketorolac IVP 15 mg IVP once Route: IVP; Site: left antecubital; iw 18:44 Not Given (Patient Refused): ondansetron 4 mg IVP once; over 2 minutes iw Disposition Summary: 04/16/24 17:48 Discharge Ordered Notes: Location: Home ec2 Condition: Stable ec2 Diagnosis - Headache ec2 - Neck Pain, bilateral arm pain ec2 Followup: ec2 - With: Private Physician - When: - Reason: Re-evaluation by your physician Discharge Instructions: - Discharge Summary Sheet ec2 - General Headache Without Cause ec2 Forms: - Work release form iw - Medication Reconciliation Form ec2 - Antibiotic Education ec2 - Prescription Opioid Use ec2 - Patient Portal Instructions ec2 - Leadership Thank You Letter ec2 Prescriptions: - Compazine 10 mg Oral Tablet - take 1 tablet ORAL route every 8 hours As needed; 20 tablet; Refills: 0, ec2 Product Selection Permitted - methocarbamol 500 mg Oral tablet - take 1 tablet ORAL route 4 times per day; 15 tablet; Refills: 0, Product ec2 Selection Permitted Signatures: Dispatcher [employer] Bridget Plunkett RN RN iw Brett Daigle MD MD ec2
--- NOTE | 2024-04-16 17:49 | ER ---
Nurse's Notes [facility] Name: Cleo Farris Age: 58 yrs Sex: Female : 1965 Arrival Date: 04/16/2024 Time: 16:26 Bed DX3 Private MD: Diagnosis: Headache;Neck Pain, bilateral arm pain Presentation: 04/16 16:46 Chief complaint: Patient states: left sided neck pain and shoulder pain X 3 days, feels iw it in her ear and into her left arm , feels like burning pain , she has been on antifungal medication for a month. Coronavirus screen: At this time, the client does not indicate any symptoms associated with coronavirus-19. Ebola Screen: No symptoms or risks identified at this time. Initial Sepsis Screen: Does the patient meet any 2 criteria? No. Patient's initial sepsis screen is negative. Does the patient have a suspected source of infection? No. Patient's initial sepsis screen is negative. Risk Assessment: Do you want to hurt yourself or someone else? Patient reports no desire to harm self or others. Onset of symptoms was April 13, 2024. 16:46 Method Of Arrival: Ambulatory iw 16:46 Acuity: KYRA 3 iw Triage Assessment: 18:44 General: Appears in no apparent distress. Behavior is calm, cooperative. Pain: iw Complains of pain in neck. GI: Reports. Historical: - Allergies: 16:48 No Known Allergies; iw - PMHx: 16:47 Diabetes - NIDDM; Heart Murmur; High Cholesterol; High Cholesterol; Hypertension; iw - PSHx: 16:47 section; Cholecystectomy; hernia repair; iw - Immunization history:: Adult Immunizations not up to date. - Infectious Disease History:: Denies. - Social history:: Smoking status: Patient denies any tobacco usage or history of. Screenin:44 [facility] ED Fall Risk Assessment (Adult) History of falling in the last 3 months, iw including since admission No falls in past 3 months (0 pts) Confusion or Disorientation No (0 pts) Intoxicated or Sedated No (0 pts) Impaired Gait No (0 pts) Mobility Assist Device Used No (0 pt) Altered Elimination No (0 pt) Score/Fall Risk Level 0 - 2 = Low Risk Oriented to surroundings, Maintained a safe environment. Abuse screen: Denies threats or abuse. Denies injuries from another. Nutritional screening: No deficits noted. Tuberculosis screening: No symptoms or risk factors identified. Assessment: 18:44 Reassessment: Patient appears in no apparent distress at this time. Patient and/or iw family updated on plan of care and expected duration. Pain level reassessed. Patient is alert, oriented x 3, equal unlabored respirations, skin warm/dry/pink. Patient states symptoms have improved. Vital Signs: 16:46 BP 136 / 86; Pulse 77; Resp 16; Temp 97.4; Pulse Ox 95% on R/A; iw 18:44 BP 166 / 69; Pulse 74; Resp 16; Pulse Ox 100% on R/A; iw ED Course: 16:29 Patient arrived in ED. al6 16:31 Brett Daigle MD is Attending Physician. ec2 16:47 Triage completed. iw 16:48 Arm band placed on. iw 17:10 BMP Sent. bc6 17:10 CBC with Diff Sent. bc6 17:10 Initial lab(s) drawn, by va, sent to lab. Inserted saline lock: 20 gauge in left bc6 antecubital area, using aseptic technique. Blood collected. Flushed with 10 mL NS. 18:44 Bridget Rhoades, RN is Primary Nurse. iw 18:45 No provider procedures requiring assistance completed. IV discontinued, intact, iw bleeding controlled, No redness/swelling at site. Pressure dressing applied. Administered Medications: 18:30 Drug: Ketorolac IVP 15 mg IVP once Route: IVP; Site: left antecubital; iw 18:44 Not Given (Patient Refused): ondansetron 4 mg IVP once; over 2 minutes iw Medication: 18:44 VIS not applicable for this client. iw Outcome: 17:48 Discharge ordered by . ec2 18:45 Discharged to home ambulatory, with family, iw 18:45 Condition: good 18:45 Discharge instructions given to patient, family, Instructed on discharge instructions, follow up and referral plans. Demonstrated understanding of instructions, follow-up care, medications, Prescriptions given X 2, 18:45 Patient left the ED. iw Signatures: Bridget Rhoades RN RN Violeta Gil [facility] Brett Daigle MD MD 2 Kathryn Beck al6
[2024-04-16] MEDS ORDERED: KETOROLAC 30 MG/ML INJ ONE (18:24)
[2024-04-16] MEDS ORDERED: ONDANSETRON 4 MG/2 ML VIAL ONE (18:24)
[2024-04-16 18:56] VITALS: TEMP 97.4
[2024-04-16 19:01] VITALS: BP 166/69; O2SAT 100
== END 2024-04-16 18:45 | disposition home or self-care (01) ==
LOC: ER 16:26
DX: R51.9 Headache, unspecified (principal); M54.2 Cervicalgia; M79.602 Pain in left arm; M79.601 Pain in right arm
CPT/HCPCS: 85025; 80048; 36415; J2405

== ENCOUNTER 2024-07-17 20:23 | Emergency (ER) | payer OTHER ==
--- NOTE | 2024-07-17 20:45 | ER ---
Nurse's Notes [facility] Name: Cleo Farris Age: 59 yrs Sex: Female : 1965 Arrival Date: 07/17/2024 Time: 20:23 Bed DX4 Private MD: Diagnosis: Cutaneous abscess of head [any part, except face] Presentation: 07/17 20:41 Chief complaint: Patient states: Insect bite to head. Pt states that daughter popped cm10 the wound and she had drainage from the wound. Pt reports headache. Coronavirus screen: Client denies travel out of the [place] in the last 14 days. Ebola Screen: Patient denies travel to an Ebola-affected area in the 21 days before illness onset. Initial Sepsis Screen: Does the patient meet any 2 criteria? No. Patient's initial sepsis screen is negative. Does the patient have a suspected source of infection? No. Patient's initial sepsis screen is negative. Risk Assessment: Do you want to hurt yourself or someone else? Patient reports no desire to harm self or others. Onset of symptoms was July 17, 2024. 20:41 Method Of Arrival: Ambulatory cm10 20:41 Acuity: KYRA 4 cm10 Triage Assessment: 20:43 General: Appears in no apparent distress. comfortable, Behavior is calm, cooperative. cm10 Pain: Complains of pain in head and back of head Pain currently is 8 out of 10 on a pain scale. Neuro: No deficits noted. Level of Consciousness is awake, alert, obeys commands, Oriented to person, place, time, situation, Appropriate for age. Respiratory: No deficits noted. Airway is patent Respiratory effort is even, unlabored, Respiratory pattern is regular, symmetrical. Historical: - Allergies: 20:41 No Known Allergies; cm10 - PMHx: 20:41 Diabetes - NIDDM; Heart Murmur; High Cholesterol; Hypertension; cm10 - PSHx: 20:41 section; Cholecystectomy; hernia repair; cm10 - Immunization history:: Adult Immunizations up to date. - Infectious Disease History:: Denies. - Social history:: Smoking status: unknown. Screenin:43 [facility] ED Fall Risk Assessment (Adult) History of falling in the last 3 months, cm10 including since admission No falls in past 3 months (0 pts) Confusion or Disorientation No (0 pts) Intoxicated or Sedated No (0 pts) Impaired Gait No (0 pts) Mobility Assist Device Used No (0 pt) Altered Elimination No (0 pt) Score/Fall Risk Level 0 - 2 = Low Risk Oriented to surroundings, Maintained a safe environment, Hourly rounding (assess needs \T\ fall precautionary measures) done. Abuse screen: Denies threats or abuse. Denies injuries from another. Nutritional screening: No deficits noted. Tuberculosis screening: No symptoms or risk factors identified. Vital Signs: 20:41 BP 145 / 87; Pulse 72; Resp 16; Temp 97.9(O); Pulse Ox 99% on R/A; Weight 90.72 kg; cm10 Height 5 ft. 0 in. ; Pain 8/10; 20:41 Body Mass Index 39.06 (90.72 kg, 152.4 cm) cm10 20:41 Pain Scale: Adult cm10 ED Course: 20:27 Patient arrived in ED. im 20:28 Kathleen Lara PA-C is PSYCHIATRICP. sb4 20:28 Cipriano Ghotra MD is Attending Physician. sb4 20:42 Triage completed. cm10 20:42 Arm band placed on right wrist. Patient placed in waiting room. cm10 21:56 Estephania Lucas RN is Primary Nurse. vc1 21:57 No provider procedures requiring assistance completed. Patient did not have IV access vc1 during this emergency room visit. Administered Medications: 21:57 Drug: Trimethoprim-Sulfamethoxazole PO (160 mg-800 mg (DS) 1 tablet PO once Route: PO; vc1 21:57 Follow up: Response: Medication administered at discharge. vc1 Medication: 20:43 VIS not applicable for this client. cm10 Outcome: 20:44 Discharge ordered by . sb4 21:57 Discharged to home ambulatory, vc1 21:57 Condition: stable 21:57 Discharge instructions given to patient, Instructed on discharge instructions, follow up and referral plans. medication usage, Demonstrated understanding of instructions, follow-up care, medications, wound care, Prescriptions given X 1, 21:57 Patient left the ED. vc1 Signatures: Estephania Lucas RN RN vc1 Kathleen Lara PA-C PA-C sb4 Shayy Puente Racquel Rodríguez RN RN cm10
--- NOTE | 2024-07-17 20:45 | EDPHYS ---
Physician Documentation [facility] Name: Cleo Farris Age: 59 yrs Sex: Female : 1965 Arrival Date: 07/17/2024 Time: 20:23 Bed DX4 Private MD: ED Physician Cipriano Ghotra HPI: 07/17 23:32 This 59 yrs old Female presents to ER via Ambulatory with complaints of Wound sb4 Check - On head. 23:32 The patient presents with an abscess of the right side of the back of head. sb4 Description: The affected area is small, localized, draining, swollen, tense, warm. Onset: The symptoms/episode began/occurred 3 day(s) ago. Possible cause(s): insect bite/sting. Associated signs and symptoms: Pertinent positives: drainage, Pertinent negatives: fever. Historical: - Allergies: 20:41 No Known Allergies; cm10 - PMHx: 20:41 Diabetes - NIDDM; Heart Murmur; High Cholesterol; Hypertension; cm10 - PSHx: 20:41 section; Cholecystectomy; hernia repair; cm10 - Immunization history:: Adult Immunizations up to date. - Infectious Disease History:: Denies. - Social history:: Smoking status: unknown. ROS: 23:32 Constitutional: Negative for fever, chills, and weight loss, sb4 23:32 Skin: Positive for abscess, of the right side of the back of head, 23:32 All other systems are negative, Exam: 23:32 Constitutional: This is a well developed, well nourished patient who is awake, alert, sb4 and in no acute distress. Head/Face: Normocephalic, atraumatic. Eyes: Extra-ocular motions intact. Periorbital areas with no swelling, redness, or edema. ENT: Mucous membranes moist. Respiratory: No increased work of breathing, no retractions or nasal flaring. 23:32 Skin: abscess, that is small, approximately 2 cm(s), of the right side of the back of head, with drainage, that is purulent, mild, Vital Signs: 20:41 BP 145 / 87; Pulse 72; Resp 16; Temp 97.9(O); Pulse Ox 99% on R/A; Weight 90.72 kg; cm10 Height 5 ft. 0 in. ; Pain 8/10; 20:41 Body Mass Index 39.06 (90.72 kg, 152.4 cm) cm10 20:41 Pain Scale: Adult cm10 MDM: 20:28 Medical Screening Exam initiated sb4 23:33 Data reviewed: vital signs, nurses notes, and as a result, I will discharge patient. sb4 Counseling: I had a detailed discussion with the patient and/or guardian regarding the historical points, exam findings, and any diagnostic results supporting the discharge/admit diagnosis, the need for outpatient follow up, for definitive care, to return to the emergency department if symptoms worsen or persist or if there are any questions or concerns that arise at home. 23:34 Differential diagnosis: abscess, allergic reaction, cellulitis, insect bite. sb4 Administered Medications: 21:57 Drug: Trimethoprim-Sulfamethoxazole PO (160 mg-800 mg (DS) 1 tablet PO once Route: PO; vc1 21:57 Follow up: Response: Medication administered at discharge. vc1 Disposition Summary: 07/17/24 20:44 Discharge Ordered Notes: Location: Home sb4 Problem: an ongoing problem sb4 Symptoms: are unchanged sb4 Condition: Stable sb4 Diagnosis - Cutaneous abscess of head [any part, except face] sb4 Followup: sb4 - With: Emergency Department - When: As needed - Reason: Fever > 102 F, Worsening of condition Discharge Instructions: - Discharge Summary Sheet sb4 - Skin Abscess, Ltdf-[id number] sb4 Forms: - Antibiotic Education sb4 - Patient Portal Instructions sb4 - Leadership Thank You Letter sb4 Prescriptions: - Bactrim DS 800-160 mg Oral Tablet - take 1 tablet ORAL route every 12 hours for 7 days; 14 tablet; Refills: 0, sb4 Product Selection Permitted Signatures: Estephania Lucas RN RN vc1 Kathleen Lara PA-C PARosina sb4 Racquel Rodríguez, RN RN cm10
[2024-07-17] MEDS ORDERED: SMZ./TMP. 800/160 MG TABLET ONE (21:50)
[2024-07-17 22:24] VITALS: BP 145/87; TEMP 97.9; O2SAT 99
== END 2024-07-17 21:57 | disposition home or self-care (01) ==
LOC: ER 20:23
DX: L02.811 Cutaneous abscess of head [any part, except face] (principal)
CPT/HCPCS: 99283